=== PATIENT | male | born 1955 | race Caucasian/White ===

== ENCOUNTER 2018-03-01 06:27 | Inpatient (IN) | payer BC, OTHER ==
[~2018-03-01] VITALS: Ht 175.3 cm; Wt 74.6 kg
[~2018-03-01 06:27] MED LIST: CSPOPS OPR; DOCU1CAP60 PO; PRT40 PO; TIMO0.2528 OPL
[2018-03-01] MEDS ORDERED: FAMOTIDINE 20 MG TAB PO STA (06:39)
[2018-03-01] MEDS ORDERED: SUCRALFATE 1 GM TAB PO STA (06:39)
[2018-03-01] MEDS ORDERED: GI COCKTAIL PO STA (06:39)
--- NOTE | 2018-03-01 06:40 | EMERGENCY ROOM VISIT NOTE ---
History Report prepared by Clarissa: Fred West Under the Supervision of: Dr. Geovanni Cheatham M.D. First contact with patient: 06:33 Chief Complaint: ABDOMINAL PAIN Stated Complaint: SEVERE STOMACH PAIN,VOMITING History of Present Illness The patient is a 62 year old male who presents to the Emergency Room with complaints of worsening abdominal pain that began "a couple of nights ago." The patient states that the pain was initially intermittent "spasms" but worsened acutely last night. The patient also notes that he did vomit last night. He is having some reflux. The patient notes that he has a history of diverticulitis, but this does not feel similar. He denies any unusual urinary symptoms. Source of History: patient Onset: "a couple of nights ago." Position: abdomen Quality: other ("spasms") Timing: worsening Associated Symptoms: + vomiting Review of Systems See HPI for pertinent positives & negatives. A total of 10 systems reviewed and were otherwise negative. Past Medical & Surgical Medical Problems: (1) Anemia (2) Diab Jennifer Wo Compl, Type Ii Or Unspec Type, Not Uncntrld (3) Hypertension Nos (4) Inguinal hernia (5) Kidney disease Surgical Problems: (1) S/P correction of deviated nasal septum Family History FH: cancer Hypertension Kidney disease or stones Social History Smoking Status: Never Smoker Alcohol Use: occasionally Marital Status: Housing Status: lives with significant other Occupation Status: retired Current/Historical Medications Scheduled Dorzolamide Hcl-Timolol Maleat (Cosopt Oph), 1 DROP OPR DAILY Timolol Hemihydrate 0.25% Oph (Betimol 0.25% Oph), 1 DROP OPL DAILY Allergies Coded Allergies: No Known Allergies (Verified , 03/01/18) Physical Exam Vital Signs Date Time Temp Pulse Resp B/P (MAP) Pulse Ox O2 Delivery O2 Flow Rate FiO2 03/01/18 10:55 70 03/01/18 10:19 72 16 129/83 99 Room Air 03/01/18 09:32 64 20 121/78 96 03/01/18 08:30 76 12 138/87 98 Room Air 03/01/18 08:00 81 21 126/84 94 Room Air 03/01/18 07:30 72 20 129/86 98 Room Air 03/01/18 07:20 74 12 135/88 95 Room Air 03/01/18 07:00 72 20 132/94 95 Room Air 03/01/18 06:55 92 03/01/18 06:50 Room Air 03/01/18 06:50 82 16 144/94 97 Room Air 03/01/18 06:29 36.8 115 16 136/97 97 Room Air Physical Exam GENERAL: Awake, alert, well-appearing, in no acute distress HENT: Normocephalic, atraumatic. Oropharynx unremarkable. EYES: Normal conjunctiva. Sclera non-icteric. NECK: Supple. No nuchal rigidity. FROM. No JVD. RESPIRATORY: Clear to auscultation. CARDIAC: Regular rate, normal rhythm. Extremities warm and well perfused. Pulses equal. ABDOMEN: Soft, non-distended. Mild tenderness to the epigastric area. No rebound or guarding. No masses. RECTAL: Deferred. MUSCULOSKELETAL: Chest examination reveals no tenderness. The back is symmetrical on inspection without obvious abnormality. There is no CVA tenderness to palpation. No joint edema. LOWER EXTREMITIES: Calves are equal size bilaterally and non-tender. No edema. No discoloration. NEURO: Normal sensorium. No sensory or motor deficits noted. SKIN: No rash or jaundice noted. Medical Decision & Procedures ER Provider Diagnostic Interpretation: Radiology results as stated below per my review and radiologist interpretation: ABD/PELVIS IV AND ORAL CONT CLINICAL HISTORY: 62 years-old Male presenting with Pt c/o epigastric pain, severe stomach pain, vomiting. TECHNIQUE: Multidetector CT of the abdomen and pelvis was performed after the administration of oral and intravenous contrast. IV contrast: 116 mL of Optiray 320. A dose lowering technique was used consistent with the principles of ALARA (as low as reasonably achievable). COMPARISON: 06/28/2015. CT DOSE (mGy.cm): The estimated cumulative dose is 343.78 mGy.cm. FINDINGS: Craniologist topogram: Unremarkable. Lung bases: Minimal basilar opacities, likely atelectasis. Normal heart size. Coronary artery calcification. No pericardial or pleural effusion. Liver: Normal morphology. No liver lesion. Patent hepatic vasculature. Biliary: No intrahepatic or extrahepatic biliary ductal dilatation. Normal gallbladder. Pancreas: Normal. Spleen: Normal. Adrenal glands: Normal. Kidneys and ureters: Multiple bilateral nonobstructing renal calculi measuring up to 3 mm on the right and 2 mm on the left. There is also a focal area of hypoperfusion along the lateral aspect of the interpolar region of the right kidney (series 3 image 160). There is overlying cortical enhancement. No hydronephrosis. No significant urothelial thickening. No perinephric or periureteral fat stranding. Bladder: Circumferential bladder wall thickening. Pelvic organs: Prostate enlargement likely secondary to benign prostatic hyperplasia. Bowel: Severely distended small bowel measuring over 5 cm in the right mid abdomen. Small bowel tapers gradually to a less distended caliber up stream. There is a focal transition point in the left hemipelvis (series 3 image 334), where dilated small bowel upstream contains feces and abruptly diminishes in caliber. The downstream portion demonstrates pathologic small bowel wall thickening (series 3 image 340). The distal ileum is decompressed. The appendix is normal. Diverticulosis of the sigmoid colon suggested. No colonic wall thickening. Peritoneal cavity: Small amount of free fluid in the pelvis with trace fluid in the leaves of the mesentery. No pneumatosis or free intraperitoneal gas. Lymph nodes: No enlarged lymph nodes in the abdomen or pelvis. Vasculature: Aorta and IVC patent and normal in caliber. Abdominal wall: Normal. Musculoskeletal: Erosive endplate changes noted at L1, L2-3, and L4-5. IMPRESSION: 1. Findings consistent with high-grade small bowel obstruction with a focal transition point in the left hemipelvis. Feces noted in the immediate upstream dilated small bowel. Small bowel is dilated over 5 cm in the right abdomen. Immediately downstream to the transition point is a segment of small bowel with pathologic circumferential wall thickening. This could be due to fibrostenotic small bowel stricture, focal small bowel ischemia change, enteritis, or post radiation change. 2. Bilateral nonobstructing nephrolithiasis. 3. Focal abnormal right renal parenchymal enhancement. Findings are not consistent with infarct. This may suggest focal pyelonephritis/lobar nephronia. Correlate with urinalysis. 4. Erosive endplate changes in the lumbar spine most likely degenerative in etiology. The report will be called/faxed according to standard departmental protocol. Electronically signed by: Javier Nagy M.D. 03/01/2018 9:57 AM Dictated Date/Time: 03/01/2018 9:46 AM CHEST ONE VIEW PORTABLE CLINICAL HISTORY: Atypical chest pain COMPARISON STUDY: 01/18/2015 FINDINGS: The cardiac and mediastinal contours are normal. There is no evidence of focal pulmonary consolidation. There is no evidence of failure. No pleural effusions are visualized.[ IMPRESSION: No active disease in the chest. Electronically signed by: Shen Haddad M.D. 03/01/2018 6:52 AM Dictated Date/Time: 03/01/2018 6:52 AM Laboratory Results 03/01/18 06:44 Red Blood Count 5.72, Mean Corpuscular Volume 94.2, Mean Corpuscular Hemoglobin 33.0, Mean Corpuscular Hemoglobin Concent 35.1, Mean Platelet Volume 10.7, Neutrophils (%) (Auto) 73.9, Lymphocytes (%) (Auto) 15.2, Monocytes (%) (Auto) 9.8, Eosinophils (%) (Auto) 0.6, Basophils (%) (Auto) 0.2, Neutrophils # (Auto) 8.00, Lymphocytes # (Auto) 1.65, Monocytes # (Auto) 1.06, Eosinophils # (Auto) 0.06, Basophils # (Auto) 0.02 03/01/18 06:44 Test 03/01/18 06:44 03/01/18 09:02 White Blood Count 10.82 K/uL (4.8-10.8) Red Blood Count 5.72 M/uL (4.7-6.1) Hemoglobin 18.9 g/dL (14.0-18.0) Hematocrit 53.9 % (42-52) Mean Corpuscular Volume 94.2 fL (80-100) Mean Corpuscular Hemoglobin 33.0 pg (25-34) Mean Corpuscular Hemoglobin Concent 35.1 g/dl (32-36) Platelet Count 217 K/uL (130-400) Mean Platelet Volume 10.7 fL (7.4-10.4) Neutrophils (%) (Auto) 73.9 % Lymphocytes (%) (Auto) 15.2 % Monocytes (%) (Auto) 9.8 % Eosinophils (%) (Auto) 0.6 % Basophils (%) (Auto) 0.2 % Neutrophils # (Auto) 8.00 K/uL (1.4-6.5) Lymphocytes # (Auto) 1.65 K/uL (1.2-3.4) Monocytes # (Auto) 1.06 K/uL (0.11-0.59) Eosinophils # (Auto) 0.06 K/uL (0-0.5) Basophils # (Auto) 0.02 K/uL (0-0.2) RDW Standard Deviation 46.6 fL (36.4-46.3) RDW Coefficient of Variation 13.6 % (11.5-14.5) Immature Granulocyte % (Auto) 0.3 % Immature Granulocyte # (Auto) 0.03 K/uL (0.00-0.02) Anion Gap 10.0 mmol/L (3-11) Est Creatinine Clear Calc Drug Dose 67.3 ml/min Estimated GFR () 80.9 Estimated GFR (Non- 69.8 BUN/Creatinine Ratio 12.3 (10-20) Calcium Level 9.6 mg/dl (8.5-10.1) Total Bilirubin 1.5 mg/dl (0.2-1) Direct Bilirubin 0.4 mg/dl (0-0.2) Aspartate Amino Transf (AST/SGOT) 24 U/L (15-37) Alanine Aminotransferase (ALT/SGPT) 29 U/L (12-78) Alkaline Phosphatase 98 U/L (45-117) Total Creatine Kinase 97 U/L (39-308) Creatine Kinase MB 2.4 ng/ml (0.5-3.6) Creatine Kinase MB Ratio 2.5 (0-3.0) Troponin I < 0.015 ng/ml (0-0.045) Total Protein 8.5 gm/dl (6.4-8.2) Albumin 4.5 gm/dl (3.4-5.0) Lipase 99 U/L (73-393) Urine Color DK YELLOW Urine Appearance CLEAR (CLEAR) Urine pH 5.0 (4.5-7.5) Urine Specific [place] 1.027 (1.000-1.030) Urine Protein TRACE (NEG) Urine Glucose (UA) NEG (NEG) Urine Ketones 1+ (NEG) Urine Occult Blood NEG (NEG) Urine Nitrite NEG (NEG) Urine Bilirubin NEG (NEG) Urine Urobilinogen NEG (NEG) Urine Leukocyte Esterase NEG (NEG) Urine WBC (Auto) 0 /hpf (0-5) Urine RBC (Auto) 0-4 /hpf (0-4) Urine Hyaline Casts (Auto) 1-5 /lpf (0-5) Urine Epithelial Cells (Auto) 0-5 /lpf (0-5) Urine Bacteria (Auto) NEG (NEG) Labs reviewed by ED physician. Medications Administered Medications (Trade) Dose Ordered Sig/Andressa Route Start Time Stop Time Status Last Admin Dose Admin Famotidine (Pepcid Tab) 20 mg NOW STAT PO 03/01/18 06:39 03/01/18 06:42 DC 03/01/18 06:52 20 MG Sucralfate (Carafate Tab) 1 gm NOW STAT PO 03/01/18 06:39 03/01/18 06:42 DC 03/01/18 06:52 1 GM Al Hydroxide/Mg Hydroxide (Maalox Susp) 30 ml STK-MED ONCE .ROUTE 03/01/18 06:43 03/01/18 06:44 DC 03/01/18 06:52 30 ML Lidocaine HCl (Viscous Lidocaine 2% Soln) 20 ml STK-MED ONCE .ROUTE 03/01/18 06:43 03/01/18 06:44 DC 03/01/18 06:52 20 ML Sodium Chloride 1,000 ml @ 999 mls/hr Q1H1M STAT IV 03/01/18 07:00 03/01/18 08:00 DC 03/01/18 07:00 999 MLS/HR Ondansetron HCl (Zofran Inj) 4 mg NOW STAT IV 03/01/18 07:00 03/01/18 07:02 DC 03/01/18 07:16 4 MG Sodium Chloride 1,000 ml @ 150 mls/hr Q6H40M IV 03/01/18 10:56 03/31/18 10:55 03/01/18 12:20 150 MLS/HR ECG Per My Interpretation Indication: abdominal pain Rate (beats per minute): 80 Rhythm: normal sinus Findings: no acute ischemic change, no ectopy, other (No LEWIS/STD) ED Course 0634: Past medical records reviewed. The patient was evaluated in room B3B. A complete history and physical examination was performed. 0070: I checked on the patient at this time. 1014: I discussed the case with Felice Cormier - General Surgery. He will evaluate for further symptoms. He will admit the patient. Medical Decision Prior records/ancillary studies reviewed. Triage Nursing notes reviewed. Differential diagnosis: Etiologies such as appendicitis, diverticulitis, PUD, biliary pathology, UTI, pancreatitis, obstruction, mesenteric ischemia, aortic pathology, infections, inflammatory bowel disease, renal colic, as well as others were entertained. This is a 62-year-old male who presents with vomiting that has been ongoing since last evening. Along with abdominal pain. Patient is refusing anything here for the pain. He was given Pepcid and Carafate along with a GI cocktail. Patient was sent for CAT scan of the abdomen with contrast. This was concerning for a high-grade bowel obstruction. For this reason I did discuss the case with the surgeon electronic funds transfer coordinator who agreed to see the patient. An NG tube was inserted with improvement in the patient's pain. Patient and are in agreement with the treatment plan. Medication Reconcilliation Current Medication List: was personally reviewed by me Blood Pressure Screening Patient's blood pressure: Normal blood pressure Consults Time Called: 1010 Consulting Physician: Felice Lofton [facility] [place] Returned Call: 1014 I discussed the case with Felice Cormier [facility] [place]. He will evaluate for further symptoms. He will admit the patient Impression Primary Impression: Abdominal pain Additional Impression: Small bowel obstruction Critical Care I have personally spent greater than 30 minutes of critical care time in the direct management of this patient. This includes bedside care, interpretation of diagnostic studies, and testing, discussion with consultants, patient, and family members, and other required patient management activities. This 30 minutes is in excess of all separately billable procedures. Scribe Attestation The scribe's documentation has been prepared under my direction and personally reviewed by me in its entirety. I confirm that the note above accurately reflects all work, treatment, procedures, and medical decision making performed by me. Departure Information Dispostion Being Evaluated By Surgeon Adán Warner M.D. (PCP) Patient Instructions My [facility] Problem Qualifiers Primary Impression: Abdominal pain Abdominal location: unspecified location Qualified Codes: R10.9 - Unspecified abdominal pain
[2018-03-01] MEDS ORDERED: LIDOCAINE HCL 2% VISC SOLN 20 ML UDC ONE (06:43)
[2018-03-01] MEDS ORDERED: ALUMINUM/MAGNESIUM SUSP 30 ML UDC ONE (06:43)
--- NOTE | 2018-03-01 06:54 | DIAGNOSTIC IMAGING REPORT ---
CHEST ONE VIEW PORTABLE CLINICAL HISTORY: Atypical chest pain COMPARISON STUDY: 01/18/2015 FINDINGS: The cardiac and mediastinal contours are normal. There is no evidence of focal pulmonary consolidation. There is no evidence of failure. No pleural effusions are visualized.[ IMPRESSION: No active disease in the chest. Electronically signed by: Shen Haddad M.D. 03/01/2018 6:52 AM Dictated Date/Time: 03/01/2018 6:52 AM
[2018-03-01 06:57] LABS: BASO % 0.2 %; BASO ABS # 0.02 K/uL (0-0.2); EOS % 0.6 %; EOS ABS # 0.06 K/uL (0-0.5); HEMATOCRIT 53.9 % (42-52); HEMOGLOBIN 18.9 g/dL (14.0-18.0); IG# 0.03 K/uL (0.00-0.02); LYMPH % 15.2 %; LYMPH ABS # 1.65 K/uL (1.2-3.4); MEAN CELL VOLUME 94.2 fL (80-100); MEAN CORPUSCULAR HGB CONC 35.1 g/dl (32-36); MEAN PLATELET VOLUME 10.7 fL (7.4-10.4); MONO % 9.8 %; MONO ABS # 1.06 K/uL (0.11-0.59); NEUT % 73.9 %; PLATELET COUNT 217 K/uL (130-400); RED CELL DISTRIBUTION WIDTH CV 13.6 % (11.5-14.5); RED CELL DISTRIBUTION WIDTH SD 46.6 fL (36.4-46.3); WHITE BLOOD COUNT 10.82 K/uL (4.8-10.8)
[2018-03-01] MEDS ORDERED: OPTIRAY 320 IV PRN (07:00)
[2018-03-01] MEDS ORDERED: SODIUM CHLORIDE 0.9% 1000ML 1,000 ML IV STA (07:00)
[2018-03-01] MEDS ORDERED: ONDANSETRON INJ 2 MG/ML 2 ML VIAL IV STA (07:00)
[2018-03-01 07:20] LABS: ALBUMIN 4.5 gm/dl (3.4-5.0); ALKALINE PHOSPHATASE 98 U/L (45-117); ALT/SGPT 29 U/L (12-78); AST/SGOT 24 U/L (15-37); BLOOD UREA NITROGEN 14 mg/dl (7-18); CALCIUM 9.6 mg/dl (8.5-10.1); CARBON DIOXIDE 27 mmol/L (21-32); CKMB 2.4 ng/ml (0.5-3.6); CREATININE 1.11 mg/dl (0.60-1.40); GLUCOSE 113 mg/dl (70-99); LIPASE 99 U/L (73-393); POTASSIUM 4.3 mmol/L (3.5-5.1); SODIUM 137 mmol/L (136-145); TOTAL PROTEIN 8.5 gm/dl (6.4-8.2)
[2018-03-01] MEDS ORDERED: TIMO1SOL6 OPL (08:29)
[2018-03-01] MEDS ORDERED: DORZ1SOL6 OPR (08:29)
--- NOTE | 2018-03-01 09:59 | DIAGNOSTIC IMAGING REPORT ---
ABD/PELVIS IV AND ORAL CONT CLINICAL HISTORY: 62 years-old Male presenting with Pt c/o epigastric pain, severe stomach pain, vomiting. TECHNIQUE: Multidetector CT of the abdomen and pelvis was performed after the administration of oral and intravenous contrast. IV contrast: 116 mL of Optiray 320. A dose lowering technique was used consistent with the principles of ALARA (as low as reasonably achievable). COMPARISON: 06/28/2015. CT DOSE (mGy.cm): The estimated cumulative dose is 343.78 mGy.cm. FINDINGS: Research Study Assistant topogram: Unremarkable. Lung bases: Minimal basilar opacities, likely atelectasis. Normal heart size. Coronary artery calcification. No pericardial or pleural effusion. Liver: Normal morphology. No liver lesion. Patent hepatic vasculature. Biliary: No intrahepatic or extrahepatic biliary ductal dilatation. Normal gallbladder. Pancreas: Normal. Spleen: Normal. Adrenal glands: Normal. Kidneys and ureters: Multiple bilateral nonobstructing renal calculi measuring up to 3 mm on the right and 2 mm on the left. There is also a focal area of hypoperfusion along the lateral aspect of the interpolar region of the right kidney (series 3 image 160). There is overlying cortical enhancement. No hydronephrosis. No significant urothelial thickening. No perinephric or periureteral fat stranding. Bladder: Circumferential bladder wall thickening. Pelvic organs: Prostate enlargement likely secondary to benign prostatic hyperplasia. Bowel: Severely distended small bowel measuring over 5 cm in the right mid abdomen. Small bowel tapers gradually to a less distended caliber up stream. There is a focal transition point in the left hemipelvis (series 3 image 334), where dilated small bowel upstream contains feces and abruptly diminishes in caliber. The downstream portion demonstrates pathologic small bowel wall thickening (series 3 image 340). The distal ileum is decompressed. The appendix is normal. Diverticulosis of the sigmoid colon suggested. No colonic wall thickening. Peritoneal cavity: Small amount of free fluid in the pelvis with trace fluid in the leaves of the mesentery. No pneumatosis or free intraperitoneal gas. Lymph nodes: No enlarged lymph nodes in the abdomen or pelvis. Vasculature: Aorta and IVC patent and normal in caliber. Abdominal wall: Normal. Musculoskeletal: Erosive endplate changes noted at L1, L2-3, and L4-5. IMPRESSION: 1. Findings consistent with high-grade small bowel obstruction with a focal transition point in the left hemipelvis. Feces noted in the immediate upstream dilated small bowel. Small bowel is dilated over 5 cm in the right abdomen. Immediately downstream to the transition point is a segment of small bowel with pathologic circumferential wall thickening. This could be due to fibrostenotic small bowel stricture, focal small bowel ischemia change, enteritis, or post radiation change. 2. Bilateral nonobstructing nephrolithiasis. 3. Focal abnormal right renal parenchymal enhancement. Findings are not consistent with infarct. This may suggest focal pyelonephritis/lobar nephronia. Correlate with urinalysis. 4. Erosive endplate changes in the lumbar spine most likely degenerative in etiology. The report will be called/faxed according to standard departmental protocol. Electronically signed by: Javier Nagy M.D. 03/01/2018 9:57 AM Dictated Date/Time: 03/01/2018 9:46 AM
[2018-03-01] MEDS ORDERED: SODIUM CHLORIDE 0.9% 1000ML 1,000 ML IV SCH (10:56)
--- NOTE | 2018-03-01 10:56 | History and Physical ---
History & Physical Date & Time of Service: Mar 01, 2018 at 10:41 Chief Complaint: Severe Stomach Pain,Vomiting Primary Care Physician: Adán Freedman M.D. History of Present Illness 62 y/o male with abdominal pain, bloating for past two days and last night began vomiting. Has had less severe symptoms at home if he has high fiber intake but usually resolves in a few hours or a day. This has been going on for past 10 years or so. Has had a few episodes of diverticulitis but never admitted. Had a GI bleed in 2013 presumed to be diverticular on discharge and had outpatient capsule endoscopy that wasn't complete. Just prior to this episode he was eating "a lot" of nuts and coleslaw. BM morning and is passing scant flatus. History of HTN but not medicated and blood sugars were elevated in 100's at one time but he has never been treated for diabetes as listed in his problem list. Past Medical/Surgical History Medical Problems: (1) Anemia (2) Diab Jennifer Wo Compl, Type Ii Or Unspec Type, Not Uncntrld (3) Hypertension Nos (4) Kidney disease Surgical Problems: (1) S/P correction of deviated nasal septum (2) Inguinal hernia Family History FH: cancer Hypertension Kidney disease or stones Social History Smoking Status: Never Smoker Marital Status: Occupational Status: retired Immunizations History of Influenza Vaccine: Yes History of Tetanus Vaccine?: Yes History of Pneumococcal: No History of Hepatitis B Vaccine: No Multi-Drug Resistant Organisms History of MDRO: No Allergies Coded Allergies: No Known Allergies (Verified , 03/01/18) Home Medications Scheduled Dorzolamide Hcl-Timolol Maleat (Cosopt Oph), 1 DROP OPR DAILY Timolol Hemihydrate 0.25% Oph (Betimol 0.25% Oph), 1 DROP OPL DAILY Review of Systems Constitutional: No fever, No chills Cardiovascular: No chest pain, No edema Abdomen: + nausea, + vomiting, + GI bleeding, No diarrhea Physical Exam Vital Signs Date Time Temp Pulse Resp B/P (MAP) Pulse Ox O2 Delivery O2 Flow Rate FiO2 03/01/18 10:19 72 16 129/83 99 Room Air 03/01/18 09:32 64 20 121/78 96 03/01/18 08:30 76 12 138/87 98 Room Air 03/01/18 08:00 81 21 126/84 94 Room Air 03/01/18 07:30 72 20 129/86 98 Room Air 03/01/18 07:20 74 12 135/88 95 Room Air 03/01/18 07:00 72 20 132/94 95 Room Air 03/01/18 06:55 92 03/01/18 06:50 Room Air 03/01/18 06:50 82 16 144/94 97 Room Air 03/01/18 06:29 36.8 115 16 136/97 97 Room Air General Appearance: WD/WN, no apparent distress ENT: normal ENT inspection Respiratory/Chest: lungs clear, normal breath sounds Cardiovascular: regular rate, rhythm, no edema, no murmur Abdomen/GI: + tenderness (minimal), + distended Neurologic/Psych: alert, oriented x 3 Skin: normal color, warm/dry Diagnostics Laboratory Results Results Past 24 Hours Test 03/01/18 06:44 03/01/18 09:02 Range/Units White Blood Count 10.82 4.8-10.8 K/uL Red Blood Count 5.72 4.7-6.1 M/uL Hemoglobin 18.9 14.0-18.0 g/dL Hematocrit 53.9 42-52 % Mean Corpuscular Volume 94.2 80-100 fL Mean Corpuscular Hemoglobin 33.0 25-34 pg Mean Corpuscular Hemoglobin Concent 35.1 32-36 g/dl Platelet Count 217 130-400 K/uL Mean Platelet Volume 10.7 7.4-10.4 fL Neutrophils (%) (Auto) 73.9 % Lymphocytes (%) (Auto) 15.2 % Monocytes (%) (Auto) 9.8 % Eosinophils (%) (Auto) 0.6 % Basophils (%) (Auto) 0.2 % Neutrophils # (Auto) 8.00 1.4-6.5 K/uL Lymphocytes # (Auto) 1.65 1.2-3.4 K/uL Monocytes # (Auto) 1.06 0.11-0.59 K/uL Eosinophils # (Auto) 0.06 0-0.5 K/uL Basophils # (Auto) 0.02 0-0.2 K/uL RDW Standard Deviation 46.6 36.4-46.3 fL RDW Coefficient of Variation 13.6 11.5-14.5 % Immature Granulocyte % (Auto) 0.3 % Immature Granulocyte # (Auto) 0.03 0.00-0.02 K/uL Sodium Level 137 136-145 mmol/L Potassium Level 4.3 3.5-5.1 mmol/L Chloride Level 101 98-107 mmol/L Carbon Dioxide Level 27 21-32 mmol/L Anion Gap 10.0 3-11 mmol/L Blood Urea Nitrogen 14 7-18 mg/dl Creatinine 1.11 0.60-1.40 mg/dl Est Creatinine Clear Calc Drug Dose 67.3 ml/min Estimated GFR () 80.9 Estimated GFR (Non- 69.8 BUN/Creatinine Ratio 12.3 10-20 Random Glucose 113 70-99 mg/dl Calcium Level 9.6 8.5-10.1 mg/dl Total Bilirubin 1.5 0.2-1 mg/dl Direct Bilirubin 0.4 0-0.2 mg/dl Aspartate Amino Transf (AST/SGOT) 24 15-37 U/L Alanine Aminotransferase (ALT/SGPT) 29 12-78 U/L Alkaline Phosphatase 98 45-117 U/L Total Creatine Kinase 97 39-308 U/L Creatine Kinase MB 2.4 0.5-3.6 ng/ml Creatine Kinase MB Ratio 2.5 0-3.0 Troponin I < 0.015 0-0.045 ng/ml Total Protein 8.5 6.4-8.2 gm/dl Albumin 4.5 3.4-5.0 gm/dl Lipase 99 73-393 U/L Urine Color DK YELLOW Urine Appearance CLEAR CLEAR Urine pH 5.0 4.5-7.5 Urine Specific [place] 1.027 1.000-1.030 Urine Protein TRACE NEG Urine Glucose (UA) NEG NEG Urine Ketones 1+ NEG Urine Occult Blood NEG NEG Urine Nitrite NEG NEG Urine Bilirubin NEG NEG Urine Urobilinogen NEG NEG Urine Leukocyte Esterase NEG NEG Urine WBC (Auto) 0 0-5 /hpf Urine RBC (Auto) 0-4 0-4 /hpf Urine Hyaline Casts (Auto) 1-5 0-5 /lpf Urine Epithelial Cells (Auto) 0-5 0-5 /lpf Urine Bacteria (Auto) NEG NEG Diagnostic Radiology ABD/PELVIS IV AND ORAL CONT CLINICAL HISTORY: 62 years-old Male presenting with Pt c/o epigastric pain, severe stomach pain, vomiting. TECHNIQUE: Multidetector CT of the abdomen and pelvis was performed after the administration of oral and intravenous contrast. IV contrast: 116 mL of Optiray 320. A dose lowering technique was used consistent with the principles of ALARA (as low as reasonably achievable). COMPARISON: 06/28/2015. CT DOSE (mGy.cm): The estimated cumulative dose is 343.78 mGy.cm. FINDINGS: Bundle Shaker topogram: Unremarkable. Lung bases: Minimal basilar opacities, likely atelectasis. Normal heart size. Coronary artery calcification. No pericardial or pleural effusion. Liver: Normal morphology. No liver lesion. Patent hepatic vasculature. Biliary: No intrahepatic or extrahepatic biliary ductal dilatation. Normal gallbladder. Pancreas: Normal. Spleen: Normal. Adrenal glands: Normal. Kidneys and ureters: Multiple bilateral nonobstructing renal calculi measuring up to 3 mm on the right and 2 mm on the left. There is also a focal area of hypoperfusion along the lateral aspect of the interpolar region of the right kidney (series 3 image 160). There is overlying cortical enhancement. No hydronephrosis. No significant urothelial thickening. No perinephric or periureteral fat stranding. Bladder: Circumferential bladder wall thickening. Pelvic organs: Prostate enlargement likely secondary to benign prostatic hyperplasia. Bowel: Severely distended small bowel measuring over 5 cm in the right mid abdomen. Small bowel tapers gradually to a less distended caliber up stream. There is a focal transition point in the left hemipelvis (series 3 image 334), where dilated small bowel upstream contains feces and abruptly diminishes in caliber. The downstream portion demonstrates pathologic small bowel wall thickening (series 3 image 340). The distal ileum is decompressed. The appendix is normal. Diverticulosis of the sigmoid colon suggested. No colonic wall thickening. Peritoneal cavity: Small amount of free fluid in the pelvis with trace fluid in the leaves of the mesentery. No pneumatosis or free intraperitoneal gas. Lymph nodes: No enlarged lymph nodes in the abdomen or pelvis. Vasculature: Aorta and IVC patent and normal in caliber. Abdominal wall: Normal. Musculoskeletal: Erosive endplate changes noted at L1, L2-3, and L4-5. IMPRESSION: 1. Findings consistent with high-grade small bowel obstruction with a focal transition point in the left hemipelvis. Feces noted in the immediate upstream dilated small bowel. Small bowel is dilated over 5 cm in the right abdomen. Immediately downstream to the transition point is a segment of small bowel with pathologic circumferential wall thickening. This could be due to fibrostenotic small bowel stricture, focal small bowel ischemia change, enteritis, or post radiation change. 2. Bilateral nonobstructing nephrolithiasis. 3. Focal abnormal right renal parenchymal enhancement. Findings are not consistent with infarct. This may suggest focal pyelonephritis/lobar nephronia. Correlate with urinalysis. 4. Erosive endplate changes in the lumbar spine most likely degenerative in etiology. The report will be called/faxed according to standard departmental protocol. Electronically signed by: Javier Nayg M.D. 03/01/2018 9:57 AM Dictated Date/Time: 03/01/2018 9:46 AM Impression Assessment and Plan Small bowel obstruction Has had low grade obstructive symptoms for some time. Transition point on CT , may be adhesion related to previous diverticulitis. Vitals are stable, will treat conservatively for now. NG was ordered but not yet placed. Will ask medicine to follow along. Consider exploration if not improving in a day or two. 03/01/18- pt evaluated in ER- adm with sbo- minimal to no pain now, wbc normal. Do not see mass on CT- likely adhesions- will cont npo, NG decompression- if no progress or pain recurs will proceed to OR.
[2018-03-01] MEDS ORDERED: ONDANSETRON INJ 2 MG/ML 2 ML VIAL IV PRN (11:00)
[2018-03-01] MEDS ORDERED: MoRPHine SULFATE 4 MG/ML 1 ML CARP\\VIAL IV PRN (11:00)
[2018-03-01] MEDS ORDERED: MoRPHine SULFATE 2 MG/ML CARP IV PRN (11:00)
[2018-03-01 11:30] VITALS: O2SAT 99; Ht 175.3 cm; Wt 74.6 kg
--- NOTE | 2018-03-01 12:22 | Medical Consult ---
Consultation Date of Consultation: Mar 01, 2018. Attending Physician: Reason for Consultation: Medical Management History of Present Illness 62 y/o M who was admitted on 03/[address] Smith for high grade SBO. Pt has no prior hx of SBO. Pt denies fever, SOB, chest pain, c/d, LE swelling. He does feel improved overall s/p NGT placement. Some occasional abd spasms now, but pain is much improved. Still bloated, but better. No further nausea. Past Medical/Surgical History PreDM hx--slightly elevated BS around 100 but controlled with diet and no hx of meds HTN--hx of medication use, but controlled off of meds at this time Hx of GIB on aspirin 81mg, since d/c'd and no hx of NC, CVA Family History Family history was reviewed; no changes noted. No NC, CVA Social History Smoking Status: Never Smoker Alcohol Use: 1 beer weekly Drug Use: none Marital Status: Housing Status: lives with significant other Occupation Status: retired Allergies Coded Allergies: No Known Allergies (Verified , 03/01/18) Current Inpatient Medications Current Inpatient Medications Medications (Trade) Dose Ordered Sig/Andressa Route Start Time Stop Time Status Last Admin Dose Admin Ioversol (Optiray 320) 100 ml UD PRN IV 03/01/18 07:00 03/05/18 06:59 Sodium Chloride 1,000 ml @ 150 mls/hr Q6H40M IV 03/01/18 10:56 03/31/18 10:55 UNV Ondansetron HCl (Zofran Inj) 4 mg Q4H PRN IV 03/01/18 11:00 03/31/18 10:59 UNV Morphine Sulfate (MoRPHine SULFATE INJ) 2 mg Q1H PRN IV 03/01/18 11:00 03/15/18 10:59 UNV Morphine Sulfate (MoRPHine SULFATE INJ) 4 mg Q1H PRN IV 03/01/18 11:00 03/15/18 10:59 UNV Dorzolamide/ Timolol (Cosopt Op Soln) 1 drops DAILY OPR 03/02/18 09:00 04/01/18 08:59 UNV Non-Formulary Medication (Timolol Hemihydrate 0.25% Oph (Betimol 0.25% Oph)) 1 drop DAILY OPL 8/22/18 09:00 04/01/18 08:59 UNV Review of Systems Pertinent positives and negatives reviewed in HPI--all others negative Physical Exam Date Time Temp Pulse Resp B/P (MAP) Pulse Ox O2 Delivery O2 Flow Rate FiO2 03/01/18 11:30 99 Room Air 03/01/18 11:30 67 20 134/95 94 Room Air 03/01/18 10:55 70 03/01/18 10:19 72 16 129/83 99 Room Air 03/01/18 09:32 64 20 121/78 96 03/01/18 08:30 76 12 138/87 98 Room Air 03/01/18 08:00 81 21 126/84 94 Room Air 03/01/18 07:30 72 20 129/86 98 Room Air 03/01/18 07:20 74 12 135/88 95 Room Air 03/01/18 07:00 72 20 132/94 95 Room Air 03/01/18 06:55 92 03/01/18 06:50 Room Air 03/01/18 06:50 82 16 144/94 97 Room Air 03/01/18 06:29 36.8 115 16 136/97 97 Room Air General Appearance: WD/WN, no apparent distress Head: normocephalic, atraumatic Eyes: normal inspection, sclerae normal Respiratory/Chest: normal breath sounds, no respiratory distress Cardiovascular: regular rate, rhythm, no edema Abdomen/GI: soft, + tenderness, + distended Extremities/Musculoskelatal: no calf tenderness, no pedal edema Neurologic/Psych: alert, normal mood/affect, oriented x 3 Skin: normal color, warm/dry Laboratory Results Last 24 Hours Test 03/01/18 06:44 03/01/18 09:02 White Blood Count 10.82 K/uL Red Blood Count 5.72 M/uL Hemoglobin 18.9 g/dL Hematocrit 53.9 % Mean Corpuscular Volume 94.2 fL Mean Corpuscular Hemoglobin 33.0 pg Mean Corpuscular Hemoglobin Concent 35.1 g/dl Platelet Count 217 K/uL Mean Platelet Volume 10.7 fL Neutrophils (%) (Auto) 73.9 % Lymphocytes (%) (Auto) 15.2 % Monocytes (%) (Auto) 9.8 % Eosinophils (%) (Auto) 0.6 % Basophils (%) (Auto) 0.2 % Neutrophils # (Auto) 8.00 K/uL Lymphocytes # (Auto) 1.65 K/uL Monocytes # (Auto) 1.06 K/uL Eosinophils # (Auto) 0.06 K/uL Basophils # (Auto) 0.02 K/uL RDW Standard Deviation 46.6 fL RDW Coefficient of Variation 13.6 % Immature Granulocyte % (Auto) 0.3 % Immature Granulocyte # (Auto) 0.03 K/uL Sodium Level 137 mmol/L Potassium Level 4.3 mmol/L Chloride Level 101 mmol/L Carbon Dioxide Level 27 mmol/L Anion Gap 10.0 mmol/L Blood Urea Nitrogen 14 mg/dl Creatinine 1.11 mg/dl Est Creatinine Clear Calc Drug Dose 67.3 ml/min Estimated GFR () 80.9 Estimated GFR (Non- 69.8 BUN/Creatinine Ratio 12.3 Random Glucose 113 mg/dl Calcium Level 9.6 mg/dl Total Bilirubin 1.5 mg/dl Direct Bilirubin 0.4 mg/dl Aspartate Amino Transf (AST/SGOT) 24 U/L Alanine Aminotransferase (ALT/SGPT) 29 U/L Alkaline Phosphatase 98 U/L Total Creatine Kinase 97 U/L Creatine Kinase MB 2.4 ng/ml Creatine Kinase MB Ratio 2.5 Troponin I < 0.015 ng/ml Total Protein 8.5 gm/dl Albumin 4.5 gm/dl Lipase 99 U/L Urine Color DK YELLOW Urine Appearance CLEAR Urine pH 5.0 Urine Specific [place] 1.027 Urine Protein TRACE Urine Glucose (UA) NEG Urine Ketones 1+ Urine Occult Blood NEG Urine Nitrite NEG Urine Bilirubin NEG Urine Urobilinogen NEG Urine Leukocyte Esterase NEG Urine WBC (Auto) 0 /hpf Urine RBC (Auto) 0-4 /hpf Urine Hyaline Casts (Auto) 1-5 /lpf Urine Epithelial Cells (Auto) 0-5 /lpf Urine Bacteria (Auto) NEG Assessment & Plan 62 y/o M who was admitted on 03/[address] Smith for high grade SBO. SBO: Noted on CTAP planning for conservative management for now DVT proph and diet as per gen surg Hb on admission 18.9 HTN: stable Hx of medication use but no longer on medication and no issues DM: hx of pre-DM that has resolved with diet control Hx of GIB with aspirin 81mg for prevention, no hx of NC, CVA
[2018-03-01 12:33] VITALS: BP 135/86; PULSE 64; TEMP 36.8; O2SAT 96
[2018-03-01] MEDS: NSS + 20MEQ KCL 1000ML 1,000 ML IV SCH ×2 (14:08→21:13)
[2018-03-01 15:12] VITALS: BP 146/85; PULSE 70; TEMP 37.1; O2SAT 97
[2018-03-01] MEDS ORDERED: NURSING DECISION MEDICATION ORDER SCH (15:15)
[2018-03-01 15:30] VITALS: O2SAT 96
[2018-03-01] MEDS: ACETAMINOPHEN IV 100 ML IV PRN (19:11)
[2018-03-01 23:33] VITALS: BP 131/82; PULSE 71; TEMP 36.7; O2SAT 95
[2018-03-02] MEDS: ACETAMINOPHEN IV 100 ML IV PRN ×2 (03:39→13:29)
[2018-03-02] MEDS: NSS + 20MEQ KCL 1000ML 1,000 ML IV SCH ×3 (05:03→20:46)
--- NOTE | 2018-03-02 06:11 | Surgery Progress Note ---
Surgery Progress Note Date of Service Mar 02, 2018. Subjective feels much better- much less distended had multiple loose bms, also some flatus NG- min initially, 350 cc last shift Objective Vital Signs: Date Time Temp Pulse Resp B/P (MAP) Pulse Ox O2 Delivery O2 Flow Rate FiO2 03/01/18 23:33 36.7 71 17 131/82 (98) 95 Room Air 03/01/18 23:10 Room Air 03/01/18 15:30 96 Room Air 03/01/18 15:12 37.1 70 18 146/85 (105) 97 Room Air 03/01/18 12:35 Room Air 03/01/18 12:33 36.8 64 20 135/86 (102) 96 Room Air 03/01/18 11:30 99 Room Air 03/01/18 11:30 67 20 134/95 94 Room Air 03/01/18 10:55 70 03/01/18 10:19 72 16 129/83 99 Room Air 03/01/18 09:32 64 20 121/78 96 03/01/18 08:30 76 12 138/87 98 Room Air 03/01/18 08:00 81 21 126/84 94 Room Air 03/01/18 07:30 72 20 129/86 98 Room Air 03/01/18 07:20 74 12 135/88 95 Room Air 03/01/18 07:00 72 20 132/94 95 Room Air 03/01/18 06:55 92 03/01/18 06:50 Room Air 03/01/18 06:50 82 16 144/94 97 Room Air 03/01/18 06:29 36.8 115 16 136/97 97 Room Air General Appearance: no apparent distress Respiratory/Chest: no respiratory distress Abdomen: non distended (some bowel sounds), soft Laboratory Results: Results Past 24 Hours Test 03/01/18 06:44 03/01/18 09:02 03/02/18 05:50 Range/Units White Blood Count 10.82 4.8-10.8 K/uL Red Blood Count 5.72 4.7-6.1 M/uL Hemoglobin 18.9 14.0-18.0 g/dL Hematocrit 53.9 42-52 % Mean Corpuscular Volume 94.2 80-100 fL Mean Corpuscular Hemoglobin 33.0 25-34 pg Mean Corpuscular Hemoglobin Concent 35.1 32-36 g/dl Platelet Count 217 130-400 K/uL Mean Platelet Volume 10.7 7.4-10.4 fL Neutrophils (%) (Auto) 73.9 % Lymphocytes (%) (Auto) 15.2 % Monocytes (%) (Auto) 9.8 % Eosinophils (%) (Auto) 0.6 % Basophils (%) (Auto) 0.2 % Neutrophils # (Auto) 8.00 1.4-6.5 K/uL Lymphocytes # (Auto) 1.65 1.2-3.4 K/uL Monocytes # (Auto) 1.06 0.11-0.59 K/uL Eosinophils # (Auto) 0.06 0-0.5 K/uL Basophils # (Auto) 0.02 0-0.2 K/uL RDW Standard Deviation 46.6 36.4-46.3 fL RDW Coefficient of Variation 13.6 11.5-14.5 % Immature Granulocyte % (Auto) 0.3 % Immature Granulocyte # (Auto) 0.03 0.00-0.02 K/uL Sodium Level 137 136-145 mmol/L Potassium Level 4.3 3.5-5.1 mmol/L Chloride Level 101 98-107 mmol/L Carbon Dioxide Level 27 21-32 mmol/L Anion Gap 10.0 3-11 mmol/L Blood Urea Nitrogen 14 7-18 mg/dl Creatinine 1.11 0.60-1.40 mg/dl Est Creatinine Clear Calc Drug Dose 67.3 ml/min Estimated GFR () 80.9 Estimated GFR (Non- 69.8 BUN/Creatinine Ratio 12.3 10-20 Random Glucose 113 70-99 mg/dl Calcium Level 9.6 8.5-10.1 mg/dl Total Bilirubin 1.5 0.2-1 mg/dl Direct Bilirubin 0.4 0-0.2 mg/dl Aspartate Amino Transf (AST/SGOT) 24 15-37 U/L Alanine Aminotransferase (ALT/SGPT) 29 12-78 U/L Alkaline Phosphatase 98 45-117 U/L Total Creatine Kinase 97 39-308 U/L Creatine Kinase MB 2.4 0.5-3.6 ng/ml Creatine Kinase MB Ratio 2.5 0-3.0 Troponin I < 0.015 0-0.045 ng/ml Total Protein 8.5 6.4-8.2 gm/dl Albumin 4.5 3.4-5.0 gm/dl Lipase 99 73-393 U/L Urine Color DK YELLOW Urine Appearance CLEAR CLEAR Urine pH 5.0 4.5-7.5 Urine Specific [place] 1.027 1.000-1.030 Urine Protein TRACE NEG Urine Glucose (UA) NEG NEG Urine Ketones 1+ NEG Urine Occult Blood NEG NEG Urine Nitrite NEG NEG Urine Bilirubin NEG NEG Urine Urobilinogen NEG NEG Urine Leukocyte Esterase NEG NEG Urine WBC (Auto) 0 0-5 /hpf Urine RBC (Auto) 0-4 0-4 /hpf Urine Hyaline Casts (Auto) 1-5 0-5 /lpf Urine Epithelial Cells (Auto) 0-5 0-5 /lpf Urine Bacteria (Auto) NEG NEG Assessment & Plan 03/02/18- adm with sbo- has had mult loose bms, flatus- initial CT findings impressive with dilated small bowel- has made improvement- check film this am, try NG clamping schedule. He feels relatively normal. Could have adhesion with partial obstruction and worsened by eating Lg salad with cabbage/ high fiber. addendum- film shows all contrast in colon- minimal findings of sbo- will remove NG, try ice
[2018-03-02 06:38] LABS: BASO % 0.4 %; BASO ABS # 0.03 K/uL (0-0.2); EOS % 1.7 %; EOS ABS # 0.13 K/uL (0-0.5); HEMATOCRIT 43.7 % (42-52); HEMOGLOBIN 14.7 g/dL (14.0-18.0); IG# 0.02 K/uL (0.00-0.02); LYMPH % 20.3 %; LYMPH ABS # 1.57 K/uL (1.2-3.4); MEAN CELL VOLUME 95.4 fL (80-100); MEAN CORPUSCULAR HEMOGLOBIN 32.1 pg (25-34); MEAN CORPUSCULAR HGB CONC 33.6 g/dl (32-36); MONO % 12.4 %; MONO ABS # 0.96 K/uL (0.11-0.59); NEUT % 64.9 %; NEUT ABS # 5.01 K/uL (1.4-6.5); PLATELET COUNT 178 K/uL (130-400); RED CELL DISTRIBUTION WIDTH CV 13.7 % (11.5-14.5); RED CELL DISTRIBUTION WIDTH SD 47.5 fL (36.4-46.3); WHITE BLOOD COUNT 7.72 K/uL (4.8-10.8)
[2018-03-02 07:00] LABS: CREATININE 0.85 mg/dl (0.60-1.40); PHOSPHORUS 2.1 mg/dl (2.5-4.9); POTASSIUM 4.2 mmol/L (3.5-5.1)
[2018-03-02 07:40] VITALS: BP 139/79; PULSE 71; TEMP 37; O2SAT 94
--- NOTE | 2018-03-02 07:54 | DIAGNOSTIC IMAGING REPORT ---
ABDOMEN 2 VIEWS CLINICAL HISTORY: Small bowel obstruction. COMPARISON STUDY: CT of the abdomen and pelvis March 01, 2018. FINDINGS: There is no free air. Tip of nasogastric tube projects over the gastric antrum. Oral contrast has now reached the colon. Small bowel dilatation has significantly improved. Bilateral renal calculi are noted. Gas within the rectum is noted. There is probable contrast within the bladder from previous CT. IMPRESSION: 1. Marked improvement in small bowel dilatation with passage of oral contrast into the colon. Tip of nasogastric tube within the gastric antrum. 2. No free air. 3. Bilateral nephrolithiasis. Electronically signed by: Adolfo Florence M.D. 03/02/2018 7:52 AM Dictated Date/Time: 03/02/2018 7:48 AM
[2018-03-02] MEDS ORDERED: DORZOLAMIDE/TIMOLOL 22.3/6.8MG/ML 10 ML BTL OPR SCH (09:00)
[2018-03-02] MEDS ORDERED: TIMOLOL HEMIHYDRATE OPL SCH (09:00)
[2018-03-02 09:30] VITALS: O2SAT 94
[2018-03-02 11:25] VITALS: BP 136/80; PULSE 66; TEMP 36.9; O2SAT 96
[2018-03-02] MEDS ORDERED: TMPOPS15 OPL (13:19)
--- NOTE | 2018-03-02 14:23 | Hospitalist Progress Note ---
Hospitalist Progress Note Date of Service Mar 02, 2018. (Keyla Manuel ., ROSS) Subjective Pt evaluation today including: conversation w/ patient, physical exam, chart review, lab review, review of inpatient medication list Voiding: no voiding problems Mr. Jeffers is feeling better today. NG tube is clamped and to be pulled. He is not nauseas, no belly pain. He has had some loose bowel movements. ROS Constitutional: no chills, aches, sweats or fever Respiratory: no sob,cough, sputum, or wheezing Cardiac: no chest pain, palpitations, edema, orthopnea or lightheadedness GI: no abdominal pain, nausea, vomiting, diarrhea or constipation : no dysuria or hesitancy Extremities: no joint pain or weakness Skin: no rash All other systems reviewed and negative (Keyla Manuel CRNP) Medications Medications Administered Medications (Trade) Dose Ordered Sig/Andressa Route Start Time Stop Time Status Last Admin Dose Admin Famotidine (Pepcid Tab) 20 mg NOW STAT PO 03/01/18 06:39 03/01/18 06:42 DC 03/01/18 06:52 20 MG Sucralfate (Carafate Tab) 1 gm NOW STAT PO 03/01/18 06:39 03/01/18 06:42 DC 03/01/18 06:52 1 GM Al Hydroxide/Mg Hydroxide (Maalox Susp) 30 ml STK-MED ONCE .ROUTE 03/01/18 06:43 03/01/18 06:44 DC 03/01/18 06:52 30 ML Lidocaine HCl (Viscous Lidocaine 2% Soln) 20 ml STK-MED ONCE .ROUTE 03/01/18 06:43 03/01/18 06:44 DC 03/01/18 06:52 20 ML Sodium Chloride 1,000 ml @ 999 mls/hr Q1H1M STAT IV 03/01/18 07:00 03/01/18 08:00 DC 03/01/18 07:00 999 MLS/HR Ondansetron HCl (Zofran Inj) 4 mg NOW STAT IV 03/01/18 07:00 03/01/18 07:02 DC 03/01/18 07:16 4 MG Sodium Chloride 1,000 ml @ 150 mls/hr Q6H40M IV 03/01/18 10:56 03/01/18 15:11 DC 03/01/18 12:20 150 MLS/HR Potassium Chloride/Sodium Chloride 1,000 ml @ 125 mls/hr Q8H IV 03/01/18 13:00 03/31/18 12:59 03/02/18 12:52 125 MLS/HR Acetaminophen 100 ml @ 400 mls/hr Q8H PRN IV 03/01/18 19:00 03/31/18 18:59 03/02/18 13:29 400 MLS/HR (Keyla Manuel CRNP) Objective Vital Signs Date Time Temp Pulse Resp B/P (MAP) Pulse Ox O2 Delivery O2 Flow Rate FiO2 03/02/18 11:25 36.9 66 16 136/80 (98) 96 Room Air 03/02/18 09:30 94 Room Air 03/02/18 07:40 37.0 71 14 139/79 (99) 94 Room Air 03/02/18 07:30 Room Air 03/01/18 23:33 36.7 71 17 131/82 (98) 95 Room Air 03/01/18 23:10 Room Air 03/01/18 15:30 96 Room Air 03/01/18 15:12 37.1 70 18 146/85 (105) 97 Room Air (Keyla Manuel CRNP) Physical Exam Notes: General: no distress Eyes: normal inspection, PERLL Respiratory: chest non tender, clear to auscultation, normal breath sounds, no respiratory distress, no accessory muscle use Cardiac: regular rate and rhythm, no rub or gallop, no murmur, no edema, no jvd GI/: active bowel sounds, no abd pain or tenderness, soft, non distended Extremities: normal range of motion, normal strength, non tender Neuro/Psych: alert and oriented x 3, normal mood and affect Skin: normal color, dry (Keyla Manuel CRNP) Laboratory Results Last 24 Hours Test 03/02/18 05:50 White Blood Count 7.72 K/uL Red Blood Count 4.58 M/uL Hemoglobin 14.7 g/dL Hematocrit 43.7 % Mean Corpuscular Volume 95.4 fL Mean Corpuscular Hemoglobin 32.1 pg Mean Corpuscular Hemoglobin Concent 33.6 g/dl Platelet Count 178 K/uL Mean Platelet Volume 11.0 fL Neutrophils (%) (Auto) 64.9 % Lymphocytes (%) (Auto) 20.3 % Monocytes (%) (Auto) 12.4 % Eosinophils (%) (Auto) 1.7 % Basophils (%) (Auto) 0.4 % Neutrophils # (Auto) 5.01 K/uL Lymphocytes # (Auto) 1.57 K/uL Monocytes # (Auto) 0.96 K/uL Eosinophils # (Auto) 0.13 K/uL Basophils # (Auto) 0.03 K/uL RDW Standard Deviation 47.5 fL RDW Coefficient of Variation 13.7 % Immature Granulocyte % (Auto) 0.3 % Immature Granulocyte # (Auto) 0.02 K/uL Sodium Level 142 mmol/L Potassium Level 4.2 mmol/L Chloride Level 109 mmol/L Carbon Dioxide Level 27 mmol/L Anion Gap 6.0 mmol/L Blood Urea Nitrogen 11 mg/dl Creatinine 0.85 mg/dl Est Creatinine Clear Calc Drug Dose 87.8 ml/min Estimated GFR () 106.7 Estimated GFR (Non- 92.1 BUN/Creatinine Ratio 13.2 Random Glucose 76 mg/dl Calcium Level 8.0 mg/dl Phosphorus Level 2.1 mg/dl Magnesium Level 2.2 mg/dl (Keyla Manuel CRNP) Assessment and Plan 62 y/o M who was admitted on 03/[address] Smith for high grade SBO. SBO: Noted on CTAP planning for conservative management for now DVT proph and diet as per gen surg Hb on admission 18.9, 14.7 today Hypophosphatemia phosphorous 2.1 - will likely resolve as he starts diet today repeat tomorrow HTN: stable Hx of medication use but no longer on medication and no issues DM: hx of pre-DM that has resolved with diet control Hx of GIB with aspirin 81mg for prevention, no hx of NH, CVA (Keyla Manuel CRNP) [employer] Physician Supervision Note: I discussed with Keyla Manuel NP and agree with findings and plan as documented in the note. Any exceptions or clarifications are listed here: None Documented By: Karl Gongora (Karl Gongora M.D.)
[2018-03-02 15:17] VITALS: BP 163/76; PULSE 72; TEMP 36.6; O2SAT 98
[2018-03-02 15:40] VITALS: O2SAT 98
[2018-03-02 23:30] VITALS: BP 113/69; PULSE 68; TEMP 36.7; O2SAT 97
[2018-03-03] MEDS: NSS + 20MEQ KCL 1000ML 1,000 ML IV SCH ×2 (04:05→14:50)
[2018-03-03] MEDS ORDERED: ACETAMINOPHEN 325 MG TAB ONE (05:58)
[2018-03-03] MEDS ORDERED: ACETAMINOPHEN 325 MG TAB PO PRN (06:00)
[2018-03-03] MEDS ORDERED: SODIUM PHOSPHATE 3 MMOL/1 ML INFUSION IV STA (06:36)
--- NOTE | 2018-03-03 06:42 | Surgery Progress Note ---
Surgery Progress Note Date of Service Mar 03, 2018. Subjective some mild headache no N/V, no abd pain, some flatus, loose bm, good urine output wants to try some food Objective Vital Signs: Date Time Temp Pulse Resp B/P (MAP) Pulse Ox O2 Delivery O2 Flow Rate FiO2 03/02/18 23:40 Room Air 03/02/18 23:30 36.7 68 16 113/69 (84) 97 Room Air 03/02/18 15:40 98 Room Air 03/02/18 15:17 36.6 72 18 163/76 (105) 98 03/02/18 11:25 36.9 66 16 136/80 (98) 96 Room Air 03/02/18 09:30 94 Room Air 03/02/18 07:40 37.0 71 14 139/79 (99) 94 Room Air 03/02/18 07:30 Room Air General Appearance: no apparent distress Respiratory/Chest: no respiratory distress Abdomen: non tender, soft, + pertinent finding (has bowel sounds) Laboratory Results: Results Past 24 Hours Test 03/03/18 05:32 Range/Units Phosphorus Level 2.4 2.5-4.9 mg/dl Assessment & Plan 03/03/18- Will try full liquids this am - give dose of Lovenox. still some concern for partial obstruction but does not require surgery at this point unless recurs/ worsens. Was considering SBF xray but would rather try diet. replace phos addendum- pt tolerating clear liquids and bowels are moving. he feels good, abd soft- will d/c home- try low fiber diet initially and advance gradually. see in office- probably check SBF- possibly have Dr Mello see him 03/02/18- adm with sbo- has had mult loose bms, flatus- initial CT findings impressive with dilated small bowel- has made improvement- check film this am, try NG clamping schedule. He feels relatively normal. Could have adhesion with partial obstruction and worsened by eating Lg salad with cabbage/ high fiber. addendum- film shows all contrast in colon- minimal findings of sbo- will remove NG, try ice 03/02/18- adm with sbo- has had mult loose bms, flatus- initial CT findings impressive with dilated small bowel- has made improvement- check film this am, try NG clamping schedule. He feels relatively normal. Could have adhesion with partial obstruction and worsened by eating Lg salad with cabbage/ high fiber. addendum- film shows all contrast in colon- minimal findings of sbo- will remove NG, try ice
[2018-03-03] MEDS ORDERED: SODIUM PHOSPHATE INJ 15 MMOL in SODIUM CHLORIDE 0.9% 250ML 250 ML IV ONE (07:00)
[2018-03-03 07:55] VITALS: BP 122/72; PULSE 66; TEMP 36.7; O2SAT 98
[2018-03-03 08:45] VITALS: O2SAT 98
[2018-03-03] MEDS ORDERED: DORZOLAMIDE/TIMOLOL 22.3/6.8MG/ML 10 ML BTL OPR SCH (09:00)
[2018-03-03] MEDS ORDERED: TIMOLOL MALEATE 0.5% OP SOLN 5 ML BTL OPL SCH (09:00)
[2018-03-03] MEDS ORDERED: ENOXAPARIN 40 MG/0.4 ML SYR SQ SCH (09:00)
--- NOTE | 2018-03-03 12:17 | Hospitalist Progress Note ---
Hospitalist Progress Note Date of Service Mar 03, 2018. Subjective Pt evaluation today including: conversation w/ patient, physical exam, chart review, lab review, review of inpatient medication list Voiding: no voiding problems Mr. Jeffers is sitting up in bed, working on his laptop. He is feeling much better, tolerating his diet, no pain. ROS Constitutional: no chills, aches, sweats or fever Respiratory: no sob,cough, sputum, or wheezing Cardiac: no chest pain, palpitations, edema, orthopnea or lightheadedness GI: no abdominal pain, nausea, vomiting, diarrhea or constipation : no dysuria or hesitancy Extremities: no joint pain or weakness Skin: no rash All other systems reviewed and negative Medications Medications Administered Medications (Trade) Dose Ordered Sig/Andressa Route Start Time Stop Time Status Last Admin Dose Admin Famotidine (Pepcid Tab) 20 mg NOW STAT PO 03/01/18 06:39 03/01/18 06:42 DC 03/01/18 06:52 20 MG Sucralfate (Carafate Tab) 1 gm NOW STAT PO 03/01/18 06:39 03/01/18 06:42 DC 03/01/18 06:52 1 GM Al Hydroxide/Mg Hydroxide (Maalox Susp) 30 ml STK-MED ONCE .ROUTE 03/01/18 06:43 03/01/18 06:44 DC 03/01/18 06:52 30 ML Lidocaine HCl (Viscous Lidocaine 2% Soln) 20 ml STK-MED ONCE .ROUTE 03/01/18 06:43 03/01/18 06:44 DC 03/01/18 06:52 20 ML Sodium Chloride 1,000 ml @ 999 mls/hr Q1H1M STAT IV 03/01/18 07:00 03/01/18 08:00 DC 03/01/18 07:00 999 MLS/HR Ondansetron HCl (Zofran Inj) 4 mg NOW STAT IV 03/01/18 07:00 03/01/18 07:02 DC 03/01/18 07:16 4 MG Sodium Chloride 1,000 ml @ 150 mls/hr Q6H40M IV 03/01/18 10:56 03/01/18 15:11 DC 03/01/18 12:20 150 MLS/HR Potassium Chloride/Sodium Chloride 1,000 ml @ 100 mls/hr Q10H IV 03/01/18 13:00 03/31/18 12:59 03/03/18 04:05 125 MLS/HR Acetaminophen 100 ml @ 400 mls/hr Q8H PRN IV 03/01/18 19:00 03/03/18 05:50 DC 03/02/18 13:29 400 MLS/HR Dorzolamide/ Timolol (Cosopt Op Soln) 2 drops DAILY OPR 03/03/18 09:00 04/02/18 08:59 03/03/18 09:00 2 DROPS Timolol Maleate (Timoptic 0.5% Oph Soln) 1 drops DAILY OPL 03/03/18 09:00 04/02/18 08:59 03/03/18 09:00 1 DROPS Acetaminophen (Tylenol Tab) 650 mg STK-MED ONCE .ROUTE 03/03/18 05:58 03/03/18 05:59 DC 03/03/18 06:00 650 MG Enoxaparin Sodium (Lovenox Inj) 40 mg QAM SQ 03/03/18 09:00 04/02/18 08:59 03/03/18 10:43 40 MG Sodium Phosphate 15 mmol/Sodium Chloride 255 ml @ 88 mls/hr NOW ONCE IV 03/03/18 07:00 03/03/18 09:53 DC 03/03/18 07:21 88 MLS/HR Objective Vital Signs Date Time Temp Pulse Resp B/P (MAP) Pulse Ox O2 Delivery O2 Flow Rate FiO2 03/03/18 08:45 98 Room Air 03/03/18 07:55 36.7 66 14 122/72 (89) 98 Room Air 03/03/18 07:20 Room Air 03/02/18 23:40 Room Air 03/02/18 23:30 36.7 68 16 113/69 (84) 97 Room Air 03/02/18 15:40 98 Room Air 03/02/18 15:17 36.6 72 18 163/76 (105) 98 Physical Exam Notes: General: no distress Eyes: normal inspection, PERLL Respiratory: chest non tender, clear to auscultation, normal breath sounds, no respiratory distress, no accessory muscle use Cardiac: regular rate and rhythm, no rub or gallop, no murmur, no edema, no jvd GI/: active bowel sounds, mild tenderness to palpation LLQ, soft, non distended Extremities: normal range of motion, normal strength, non tender Neuro/Psych: alert and oriented x 3, normal mood and affect Skin: normal color, dry Laboratory Results Last 24 Hours Test 03/03/18 05:32 03/03/18 06:55 Phosphorus Level 2.4 mg/dl Prothrombin Time 10.8 SECONDS Prothromb Time International Ratio 1.0 Activated Partial Thromboplast Time 26.0 SECONDS Partial Thromboplastin Ratio 1.0 Assessment and Plan 62 y/o M who was admitted on 03/[address] Smith for high grade SBO. SBO: Noted on CTAP - continuing conservative management per surgery - DVT proph and diet as per gen surg - Hb on admission 18.9, 14.7 03/02 Hypophosphatemia - improving - 2.4 today HTN: stable - Hx of medication use but no longer on medication and no issues DM: hx of pre-DM that has resolved with diet control Hx of GIB with aspirin 81mg for prevention, no hx of CA, CVA Medicine will sign off for now, please let us know if we can be of further service in the future
[2018-03-03] MEDS ORDERED: IBUPROFEN 600 MG TAB PO PRN (12:30)
[2018-03-03 15:13] VITALS: BP 132/78; PULSE 50; TEMP 37; O2SAT 98
--- NOTE | 2018-03-03 15:36 | Discharge Instructions ---
Discharge Instructions Date of Service Mar 03, 2018. Admission Reason for Admission: Small Bowel Obstruction Discharge Discharge Diagnosis / Problem: nausea, vomiting, abdominal pain Discharge Goals Goal(s): Decrease discomfort, Improve function, Improve disease control Activity Recommendations Activity Limitations: as noted below Lifting Limitations: gradually increase as tolerated Exercise/Sports Limitations: gradually increase as tolerated May Resume Sexual Activity: when tolerated Shower/Bathe: no limitations Driving or Machine Use: resume 1 day after discharge . Instructions / Follow-Up Instructions / Follow-Up SPECIAL CARE INSTRUCTIONS: * try low fiber diet for several days and may advance diet as tolerated. Chop vegetables well and chew well. * May use ibuprofen for pain as tolerated. or Acetaminophe Call your doctor if: * Temperature above 101 degrees * Pain not relieved by pain medicine ordered * You have any unanswered questions or concerns [phone]. (Dr Smith's ph number) FOLLOW UP VISIT: If not already scheduled, please call the office for a follow-up visit. for 2-3 weeks OFFICE PHONE NUMBER: Dr. Smith Office Current Hospital Diet Patient's current hospital diet: Full Liquid Diet Discharge Diet Recommended Diet: Low Fiber Diet Pending Studies Studies pending at discharge: no Medical Emergencies . Who to Call and When: Medical Emergencies: If at any time you feel your situation is an emergency, please call 911 immediately. . Non-Emergent Contact Non-Emergency issues call your: Primary Care Provider, Surgeon . "Provider Documentation" section prepared by John Smith. .
[2018-03-03 16:17] VITALS: BP 132/78; PULSE 50; TEMP 37; O2SAT 98
--- NOTE | 2018-03-07 14:18 | DISCHARGE SUMMARY ---
PRIMARY DISCHARGE DIAGNOSIS: Small-bowel obstruction. SECONDARY DISCHARGE DIAGNOSES: 1. History of hypertension, not requiring medication. 2. Prediabetes, diet controlled. 3. Glaucoma. CONSULTATIONS: [facility]ist for routine medical management. HOSPITAL COURSE: The patient is a 62-year-old male who presented to the Emergency Department with several days of abdominal pain, bloating and vomiting after eating a high-fiber meal. CT showed markedly dilated small bowel with a transition in the left pelvis. He has not had previous surgery, but has a history of diverticulitis. We thought that his obstruction maybe related to an adhesion from his previous diverticulitis. He was admitted to the surgical service and NG tube was placed. He had significant improvement overnight, and the next morning was able to tolerate clamping of the NG tube followed later in the day by removal and started on clear liquids. The next day , he was able to tolerate full liquids. His exam was normal. His symptoms had resolved. He was stable for discharge. DISCHARGE INSTRUCTIONS: Discharge home. Follow up with Dr. Smith in approximately 2 weeks. Can gradually begin low-fiber diet. DISCHARGE MEDICATIONS: Cosopt eyedrops daily and Timolol drops daily. MTDD
== END 2018-03-03 17:15 | disposition home or self-care (01) | DRG 390 ==
LOC: C.EDB 06:28 → C.MSW 10:59 → ENRESERV 11:23
PROVIDERS: ADMIT Surgery; ATTEND Surgery
DX: K56.609 Unspecified intestinal obstruction, unspecified as to partial versus complete obstruction (principal); R73.03 Prediabetes; I10 Essential (primary) hypertension; N18.9 Chronic kidney disease, unspecified; H40.9 Unspecified glaucoma; E83.39 Other disorders of phosphorus metabolism; Z84.2 Family history of other diseases of the genitourinary system

== ENCOUNTER 2018-09-21 16:26 | Inpatient (IN) ==
[2018-09-21] MEDS ORDERED: SODIUM CHLORIDE 0.9% 1000ML 1,000 ML IV SCH (17:45)
[2018-09-21 17:50] LABS: Basophils # (auto) 0.02 K/uL (0-0.2); Basophils % (auto) 0.2 %; Eosinophils # (auto) 0.01 K/uL (0-0.5); Eosinophils % (auto) 0.1 %; Hematocrit (blood only) 49.2 % (42-52); Hemoglobin 17.2 g/dL (14.0-18.0); Immature Granulocytes # (auto) 0.03 K/uL (0.00-0.02); Immature Granulocytes % (auto) 0.3 %; Lymphocytes # (auto) 1.42 K/uL (1.2-3.4); Lymphocytes % (auto) 14.5 %; Mean Corpuscular Volume 94.1 fL (80-100); Mean Platelet Volume 10.4 fL (7.4-10.4); Monocytes % (auto) 8.2 %; Neutrophils # (auto) 7.52 K/uL (1.4-6.5); Neutrophils % (auto) 76.7 %; Platelet Count 212 K/uL (130-400); RDW Coefficient of Variation 13.5 % (11.5-14.5); RDW Standard Deviation 46.5 fL (36.4-46.3); Red Blood Count 5.23 M/uL (4.7-6.1)
[2018-09-21 18:05] LABS: Albumin Level 4.4 gm/dl (3.4-5.0); BUN Creatinine Ratio 12.1 (10-20); Bilirubin Direct 0.3 mg/dl (0-0.2); Calcium 9.6 mg/dl (8.5-10.1); Creatinine Clr Calc Pharmacy 72.9 ml/min; Est GFR (Non-African American) 77.7; Potassium 3.9 mmol/L (3.5-5.1)
[2018-09-21 18:08] LABS: Bilirubin,Total 1.3 mg/dl (0.2-1); Total Protein 8.2 gm/dl (6.4-8.2)
--- NOTE | 2018-09-21 18:31 | XRay Report ---
XR abdomen 2V w PA chest CLINICAL HISTORY: 63 years-old Male presenting with abdominal pain hx of sbo. TECHNIQUE: PA view of the chest and supine and upright views of the abdomen were obtained. COMPARISON: 03/02/2018. FINDINGS: Cardiomediastinal silhouette normal. Lungs and pleural spaces clear. Air-fluid levels in the mid abdomen. Moderate stool burden throughout the colon. No pneumoperitoneum. Bilateral nephrolithiasis suspected. Stable distribution of pelvic phleboliths. Osseous structures normal. IMPRESSION: 1. Air-fluid levels in the midabdomen raise concerning for underlying small bowel obstruction. 2. Bilateral nephrolithiasis. 3. No acute cardiopulmonary disease. Electronically signed by: Javier Nagy M.D. 09/21/2018 6:29 PM
[2018-09-21] MEDS ORDERED: MoRPHine SULFATE 2 MG/ML CARP IV PRN (19:18)
[2018-09-21] MEDS ORDERED: KETOROLAC 30 MG/ML VIAL IV PRN (19:18)
--- NOTE | 2018-09-21 19:19 | History & Physical Report ---
Date of Service September 21, 2018 Assessment & Plan (1) SBO (small bowel obstruction): Hx of same Noted on AXR NPO with IVF Zofran, morphine, toradol PRN Pt of Dr. Smith, c/s pending (2) DVT prophylaxis: SCDs in case of need for OR History of Present Illness Primary Care Provider: Adán Freedman 63 y/o M c/o abd pain. Pt states that he woke around 12:30a today with centralized abd pain. It calmed down somewhat and he was able to go back to sleep until his alarm went off. He had a breakfast of oatmeal and went to work. He was still having slight abd pain, but it was better than when he woke with it. He was playing basketball around 11:30a and still had a slight pain. Shortly after around 12:30p he developed much more intense pain. It felt exactl y like the abd pain he has had with his SBO episodes, so he came to the ED. Pt denies fever, SOB, chest pain, n/v/c/d, LE pain or swelling. Pt states that in July he had an MEEK with Dr. Smith as an elective procedure to prevent further SBO episodes. He was not having abd pain at that time. Allergies Allergy/AdvReac Type Severity Reaction Status Date / Time No Known Allergies Allergy Verified 08/08/18 05:43 Home Medications Home Medications Medication Instructions Recorded Confirmed Type Probiotic 1 cap PO DAILY 08/08/18 09/21/18 History lutein 20 mg PO DAILY 08/08/18 09/21/18 History sumatriptan succinate 100 mg PO DIRECTED PRN 09/21/18 09/21/18 History Past Med/Surg History Medical History Arthritis (Acute) Glaucoma (Acute) History of anemia (Acute) Hx of migraines (Acute) Nephrolithiasis (Acute) Small bowel obstruction (Acute) Tinnitus (Acute) Diverticular disease Surgical History History of nasal septoplasty (Acute) History of herniorrhaphy RT INGUINAL HERNIA REPAIR Family History Father Cancer Hypertension Grandmother (Paternal) Diabetes Mother Cancer Grandfather (Maternal) Stroke Social History Preferred Language: Tristanian Beliefs That Will Affect Care: None Current Living Situation: Spouse Feels Safe at Home: Yes Smoking Status: Never smoker Hx Alcohol Use: Yes (once a week) Hx Substance Use: No Review of Systems Pertinent positives and negatives reviewed in HPI--all others negative Physical Exam Vital Signs (Past 24 Hours): Last Vital Signs Temp 36.7 C 09/21/18 16:41 Pulse 66 09/21/18 17:57 Resp 16 09/21/18 17:57 BP 142/86 H 09/21/18 17:57 Pulse Ox 99 09/21/18 17:57 Constitutional: WD/WN, vitals as above Eyes: normal visual mathews by confrontation and + anicteric sclerae Neck: normal visual inspection and trachea midline Respiratory: normal respiratory effort, lungs clear to auscultation Cardiovascular: Rate/Rhythm: regular rate and regular rhythm Gastrointestinal (Abdomen): Inspection/Auscultation: + abdomen distended Percussion/Palpation: abdomen soft; abdomen nontender Musculoskeletal: Head/Neck/Chest: normocephalic and head atraumatic negative for edema, peripheral pulses intact Skin: no rashes, warm and dry Neurologic: awake; not confused Speech / Cognition: normal speech Psychiatric: A+Ox3, euthymic affect Results & Data Diagnostic Findings C/A XR: finding c/w SBO Code Status & VTE Plan Code Status Other: Full code, although pt states no prolonged mechanical life support, feeding tubes, etc VTE Prophylaxis Plan VTE Prophylaxis will be ordered: Yes
[2018-09-21] MEDS ORDERED: MAGNESIUM HYDROXIDE SUSP 30 ML UDC PO PRN (20:25)
[2018-09-21] MEDS ORDERED: ACETAMINOPHEN 325 MG TAB PO PRN (20:25)
[2018-09-21] MEDS ORDERED: ONDANSETRON INJ 2 MG/ML 2 ML VIAL IV PRN (20:25)
[2018-09-21] MEDS: D5W AND 1/2NSS + 20MEQ KCL 20 MEQ/1,000 ML BAG IV SCH (22:35)
--- NOTE | 2018-09-21 23:14 | Emergency Department Note ---
Entered by Israel Samaniego acting as a scribe for Romaine Treadwell History of Present Illness General Chief complaint: Abdominal Pain Stated complaint: SEVERE ABD PAIN Time Seen by Provider: 09/21/18 17:30 Source: patient History of Present Illness Onset (ago): hour(s) (today) Location: abdomen Pain Consistency: + other (persistent) Quality: + other (abdominal pain similar to prior small bowel obstruction) Associated symptoms: no chest pain, no nausea/vomiting, no shortness of breath and no syncope The patient is a 63 year old male who presents to the Emergency Room with complaints of persistent abdominal pain beginning today. The patient has a history of small bowel obstruction, and on August 08 he had a laparoscopic procedure performed by Dr. Smith Surgery with lysis of adhesions. He states th at his current symptoms feel similar to his prior bowel obstructions. He states that his last bowel movement was this morning, and it was not bloody or black. He denies urinary symptoms, vomiting, chest pain, shortness of breath, or loss of consciousness. He notes that he was able to play basketball earlier today, and there was no trauma at the time. Home Medications Home Medications Medication Instructions Recorded Confirmed Type Probiotic 1 cap PO DAILY 08/08/18 09/21/18 History lutein 20 mg PO DAILY 08/08/18 09/21/18 History sumatriptan succinate 100 mg PO DIRECTED PRN 09/21/18 09/21/18 History Allergies Allergy/AdvReac Type Severity Reaction Status Date / Time No Known Allergies Allergy Verified 08/08/18 05:43 Past Med/Surg History Medical History Arthritis (Acute) Glaucoma (Acute) History of anemia (Acute) Hx of migraines (Acute) Nephrolithiasis (Acute) Small bowel obstruction (Acute) Tinnitus (Acute) Diverticular disease Surgical History History of nasal septoplasty (Acute) History of herniorrhaphy RT INGUINAL HERNIA REPAIR Family History Father Cancer Hypertension Grandmother (Paternal) Diabetes Mother Cancer Grandfather (Maternal) Stroke Social History Preferred Language: Portuguese Communication Ability: Effective Predatory Animal Hunter Required: No Beliefs That Will Affect Care: None Current Living Situation: Spouse Other Information That Helps Us Care for You: No Feels Safe at Home: Yes Safety Concerns: Feels Safe At This Time Smoking Status: Never smoker Hx Alcohol Use: Yes Hx Substance Use: No Review of Systems See HPI for pertinent positives & negatives. and A total of 10 systems reviewed and were otherwise negative Physical Exam Vital Signs Vital Signs - 24 hr 09/21/18 16:41 09/21/18 17:57 09/21/18 19:21 Temperature 36.7 C Temperature Source Oral Sepsis Recent Fever Within 48 Hours No Sepsis New/Unexplained Change in Mental Status No Sepsis Action Taken by Nursing No Action Required Pulse Rate 79 Pulse Rate [Finger] 66 72 Pulse Rhythm [Finger] Pulse Strength [Finger] Respiratory Rate 20 16 16 Respiratory Effort / Characteristics Non-Labored Spontaneous Respiratory Depth Normal Respiratory Pattern Blood Pressure 156/89 H Blood Pressure [Left Arm] 142/86 H 152/86 H Blood Pressure Mean 111 Blood Pressure Mean [Left Arm] 104 108 Blood Pressure Position Sitting Blood Pressure Position [Left Arm] Sitting Pulse Oximetry 100 99 97 Oxygen Delivery Method Room Air Room Air Room Air 09/21/18 20:01 09/21/18 20:20 Temperature 37 C Temperature Source Oral Sepsis Recent Fever Within 48 Hours Sepsis New/Unexplained Change in Mental Status Sepsis Action Taken by Nursing Pulse Rate 65 Pulse Rate [Finger] 62 Pulse Rhythm [Finger] Regular Pulse Strength [Finger] Normal Respiratory Rate 16 14 Respiratory Effort / Characteristics Non-Labored Spontaneous Normal for Patient Respiratory Depth Normal Respiratory Pattern Regular Blood Pressure 134/81 Blood Pressure [Left Arm] 154/82 H Blood Pressure Mean Blood Pressure Mean [Left Arm] 106 Blood Pressure Position Blood Pressure Position [Left Arm] Lying Pulse Oximetry 97 96 Oxygen Delivery Method Room Air Room Air GENERAL: He is oriented to person, place, and time. He appears well-developed and well-nourished. He does not appear distressed. HENT: Exam performed. Head: Normocephalic and atraumatic. Right Ear: External ear normal. No mastoid tenderness. Left Ear: External ear normal. No mastoid tenderness. Mouth/Throat: The oropharynx is clear and moist. No trismus in the jaw. No dental abscesses or uvula swelling. No oropharyngeal exudate or tonsillar abscesses. EYES: Conjunctivae and EOM are normal. Pupils are equal, round, and reactive to light. Right eye exhibits no discharge. Left eye exhibits no discharge. No scleral icterus. NECK: Normal range of motion. Neck supple. No JVD present. No spinous process tenderness present. No carotid bruit present. No rigidity. No tracheal deviation and normal range of motion present. No Brudzinski's sign and no Kernig's sign noted. CV: Normal rate, regular rhythm, normal heart sounds and intact distal pulses. There is no peripheral edema. Palpable radial pulses bue. PULM/CHEST: Effort normal and breath sounds normal. No respiratory distress. No stridor. He has no wheezes. He has no rales. Chest Wall: He exhibits no tenderness. ABD: The abdomen is soft. Bowel sounds are normal. He has no distension. No mass is present. There is diffuse tenderness to palpation. There is no rebound, no guarding, no Escoto's sign and no tenderness at McBurney's point. Rovsig negative. MUSC/SKEL: Normal range of motion. There is no peripheral edema, tenderness or deformity. LYMPH: No cervical adenopathy. NEURO: He is alert and oriented to person, place, and time. He has normal strength. No cranial nerve deficit or sensory deficit. Coordination and gait normal. GCS eye subscore is 4. GCS verbal subscore is 5. GCS motor subscore is 6. cerbellar tests wnl. SKIN: Skin is warm and dry. He is not diaphoretic. PSYCH: He has a normal mood and affect. His behavior is normal. Judgment and thought content normal. Course 1734: Past medical records reviewed. The patient was evaluated in room C5, and a complete history and physical examination were performed. 1832: Vital signs are stable. Labs are within normal limits. Imaging shows multiple air fluid levels concerning for small bowel obstruction. I consulted Dr. Tran [facility] Hospitalist. She will reevaluate the patient for hospitalization. Consultations Consultation #1: I consulted Dr. Tran [facility] Hospitalist. She will reevaluate the patient for hospitalization. Time: 18:34 Administered Medications Potassium Chloride/Dextrose/Sod Cl (D5w And 1/2nss + 20meq Kcl) 20 meq in 1,000 mls @ 120 mls/hr IV .Q8H20M SHELLY Stop: 10/21/18 21:19 Last Admin: 09/21/18 22:35 Dose: 120 mls/hr Documented by: [id number] Discontinued Medications Sodium Chloride (Nss 1000ml) 1,000 mls @ 125 mls/hr IV .Q8H SHELLY Stop: 10/21/18 17:44 Last Infusion: 09/21/18 20:00 Dose: 0 mls/hr Documented by: [id number] Admin: 09/21/18 17:52 Dose: 125 mls/hr Documented by: [id number] Medical Decision Making Medical Records Attestation: I reviewed the patient's medical records. Home Medications Current Medication List: was personally reviewed by ne Laboratory Data Attestation: I reviewed the patient's lab results. Result diagrams: 09/21/18 17:34 09/21/18 17:34 Lab Results 09/21/18 09/21/18 Range/Units 17:34 17:34 WBC 9.80 (4.8-10.8) K/uL RBC 5.23 (4.7-6.1) M/uL Hgb 17.2 (14.0-18.0) g/dL Hct 49.2 (42-52) % MCV 94.1 (80-100) fL MCH 32.9 (25-34) pg MCHC 35.0 (32-36) g/dL RDW Std Deviation 46.5 H (36.4-46.3) fL RDW Coeff of Carlos 13.5 (11.5-14.5) % Plt Count 212 (130-400) K/uL MPV 10.4 (7.4-10.4) fL Immature Gran % (Auto) 0.3 % Neut % (Auto) 76.7 % Lymph % (Auto) 14.5 % Bacon % (Auto) 8.2 % Eos % (Auto) 0.1 % Baso % (Auto) 0.2 % Immature Gran # (Auto) 0.03 H (0.00-0.02) K/uL Neut # (Auto) 7.52 H (1.4-6.5) K/uL Lymph # (Auto) 1.42 (1.2-3.4) K/uL Bacon # (Auto) 0.80 H (0.11-0.59) K/uL Eos # (Auto) 0.01 (0-0.5) K/uL Baso # (Auto) 0.02 (0-0.2) K/uL Sodium 141 (136-145) mmol/L Potassium 3.9 (3.5-5.1) mmol/L Chloride 106 (98-107) mmol/L Carbon Dioxide 27 (21-32) mmol/L Anion Gap 8.0 (3-11) BUN 12 (7-18) mg/dl Creatinine 1.01 (0.6-1.4) mg/dl Est Cr Clr Drug Dosing 72.9 ml/min Est GFR ( Amer) 90.0 Est GFR (Non-Af Amer) 77.7 BUN/Creatinine Ratio 12.1 (10-20) Glucose 91 (70-99) mg/dl Calcium 9.6 (8.5-10.1) mg/dl Total Bilirubin 1.3 H (0.2-1) mg/dl Direct Bilirubin 0.3 H (0-0.2) mg/dl AST 27 (15-37) U/L ALT 35 (12-78) U/L Alkaline Phosphatase 101 (45-117) U/L Total Protein 8.2 (6.4-8.2) gm/dl Albumin 4.4 (3.4-5.0) gm/dl Lipase 79 (73-393) U/L Imaging Data Radiologist's Impression: Radiology results as stated below per my review and the radiologist's interpretation: XR abdomen 2V w PA chest CLINICAL HISTORY: 63 years-old Male presenting with abdominal pain hx of sbo. TECHNIQUE: PA view of the chest and supine and upright views of the abdomen were obtained. COMPARISON: 03/02/2018. FINDINGS: Cardiomediastinal silhouette normal. Lungs and pleural spaces clear. Air-fluid levels in the mid abdomen. Moderate stool burden throughout the colon. No pneumoperitoneum. Bilateral nephrolithiasis suspected. Stable distribution of pelvic phleboliths. Osseous structures normal. IMPRESSION: 1. Air-fluid levels in the midabdomen raise concerning for underlying small bowel obstruction. 2. Bilateral nephrolithiasis. 3. No acute cardiopulmonary disease. Electronically signed by: Javier Nagy M.D. 09/21/2018 6:29 PM Blood Pressure Blood Pressure Findings: Elevated blood pressure Blood Pressure Disposition: further management by hospitalist [facility] Narrative Vital signs are stable. Labs are within normal limits. Imaging shows multiple air fluid levels concerning for small bowel obstruction. I consulted Dr. Tran [facility] Hospitalist. She will reevaluate the patient for hospitalization. Impression & Plan SBO (small bowel obstruction) Discharge Plan Visit Data *Final* Discharge Date/Time: 09/21/18 20:01 Chief Complaint: Abdominal Pain Stated Complaint: SEVERE ABD PAIN ED Provider: Romaine Treadwell Discharge Problem: SBO (small bowel obstruction) Patient Disposition: Admitted As Inpatient Discharge Instructions Interventions: ED Discharge Assessment Last Done: 09/21/18 20:01 The scribe's documentation has been prepared under my direction and personally reviewed by me in its entirety. I confirm that the note above accurately reflects all work, treatment, procedures, and medical decision making performed by me.
[2018-09-22] MEDS: D5W AND 1/2NSS + 20MEQ KCL 20 MEQ/1,000 ML BAG IV SCH (06:37)
[2018-09-22 08:45] LABS: Basophils # (auto) 0.02 K/uL (0-0.2); Basophils % (auto) 0.4 %; Eosinophils # (auto) 0.09 K/uL (0-0.5); Eosinophils % (auto) 1.8 %; Hematocrit (blood only) 42.6 % (42-52); Hemoglobin 14.3 g/dL (14.0-18.0); Immature Granulocytes # (auto) 0.02 K/uL (0.00-0.02); Immature Granulocytes % (auto) 0.4 %; Lymphocytes # (auto) 1.78 K/uL (1.2-3.4); Lymphocytes % (auto) 34.7 %; Mean Corpuscular Hgb Conc 33.6 g/dL (32-36); Mean Corpuscular Volume 95.1 fL (80-100); Mean Platelet Volume 10.5 fL (7.4-10.4); Monocytes # (auto) 0.47 K/uL (0.11-0.59); Monocytes % (auto) 9.2 %; Neutrophils # (auto) 2.75 K/uL (1.4-6.5); Neutrophils % (auto) 53.5 %; Platelet Count 170 K/uL (130-400); RDW Coefficient of Variation 13.8 % (11.5-14.5); Red Blood Count 4.48 M/uL (4.7-6.1); White Blood Count 5.13 K/uL (4.8-10.8)
[2018-09-22 09:00] LABS: BUN Creatinine Ratio 9.9 (10-20); Creatinine Clr Calc Pharmacy 85.6 ml/min; Est GFR (African American) 105.5; Magnesium 2.2 mg/dl (1.8-2.4); Phosphorus 2.4 mg/dl (2.5-4.9); Potassium 3.9 mmol/L (3.5-5.1)
[2018-09-22] MEDS ORDERED: POTASSIUM PHOS 3 MMOL/1 ML INFUSION IV STA (10:32)
[2018-09-22] MEDS ORDERED: POTASSIUM PHOSPHATE 15 MMOL in SODIUM CHLORIDE 0.9% 250 ML IV ONE (10:45)
--- NOTE | 2018-09-22 10:56 | Surgery Consultation ---
Date of Consultation September 22, 2018 Assessment & Plan (1) S/P laparoscopy: (2) SBO (small bowel obstruction): This may have been a transient bowel obstruction. It may also been a case of gastroenteritis. He is now passing flatus. His abdominal pain is almost completely resolved. We will start a clear liquid diet and continue to evaluate. There is no evidence of peritonitis at the present time. Present on Admission?: Yes History of Present Illness Requesting Physician: Jaleel Woodruff Attending Physician: Jaleel Woodruff History of Present Illness I have been asked by Dr. Woodruff to see this 63-year-old male who presented to the emergency room with a complaint of abdominal pain and nausea. The patient awoke with it yesterday morning. It became continuous. It had a crampy sensation to it at times. He felt that he was bloated at that same time. He has had what he describes as bowel obstructions in the past. He has had about 4 of these since 2001. He underwent an exploratory laparoscopy in July. He said that there were adhesions lysed but the OR note indicates that there were no significant abnormalities seen. Is not had any other abdominal procedures. He had a normal bowel movement yesterday morning. There was no melena or hematochezia. He has not had a bowel movement since but he is now passing flatus. The abdominal pain has almost resolved. There is slight remaining discomfort in the upper abdomen. He feels much better than he did yesterday. Allergies Allergy/AdvReac Type Severity Reaction Status Date / Time No Known Allergies Allergy Verified 08/08/18 05:43 Home Medications Home Medications Medication Instructions Recorded Confirmed Type Probiotic 1 cap PO DAILY 08/08/18 09/21/18 History lutein 20 mg PO DAILY 08/08/18 09/21/18 History sumatriptan succinate 100 mg PO DIRECTED PRN 09/21/18 09/21/18 History Patient History Medical History Arthritis (Acute) Glaucoma (Acute) History of anemia (Acute) Hx of migraines (Acute) Nephrolithiasis (Acute) Small bowel obstruction (Acute) Tinnitus (Acute) Diverticular disease Surgical History S/P laparoscopy 07/30 History of nasal septoplasty (Acute) History of herniorrhaphy RT INGUINAL HERNIA REPAIR Family History Father Cancer Hypertension Grandmother (Paternal) Diabetes Mother Cancer Grandfather (Maternal) Stroke Social History Preferred Language: Czech Communication Ability: Effective Hand Stemmer Required: No Beliefs That Will Affect Care: None Current Living Situation: Spouse Other Information That Helps Us Care for You: No Feels Safe at Home: Yes Safety Concerns: Feels Safe At This Time Smoking Status: Never smoker Hx Alcohol Use: Yes Hx Substance Use: No Review of Systems Constitutional: no fever and no chills Respiratory: no cough and no dyspnea Cardiovascular: no chest pain Gastrointestinal: as per Subjective / HPI Genitourinary (Male): no dysuria Integumentary: no rash Physical Exam Vital Signs (Past 24 Hours): Last Vital Signs Temp 36.4 C L 09/22/18 07:45 Pulse 58 L 09/22/18 07:45 Resp 18 09/22/18 07:45 BP 124/82 09/22/18 07:45 Pulse Ox 98 09/22/18 07:45 Constitutional: WD/WN, vitals as above Neck: trachea midline, no thyromegaly Respiratory: normal respiratory effort, lungs clear to auscultation Cardiovascular: Rate/Rhythm: regular rate and regular rhythm Gastrointestinal (Abdomen): Inspection/Auscultation: normal bowel sounds; abdomen not distended Percussion/Palpation: + abdomen tender (Very mild upper abdominal) and abdomen soft Skin: no rashes, warm and dry Results & Data Laboratory Results 09/22/18 09/22/18 09/21/18 Range/Units 08:00 08:00 17:34 WBC 5.13 (4.8-10.8) K/uL RBC 4.48 L (4.7-6.1) M/uL Hgb 14.3 (14.0-18.0) g/dL Hct 42.6 (42-52) % MCV 95.1 (80-100) fL MCH 31.9 (25-34) pg MCHC 33.6 (32-36) g/dL RDW Std Deviation 48.0 H (36.4-46.3) fL RDW Coeff of Carlos 13.8 (11.5-14.5) % Plt Count 170 (130-400) K/uL MPV 10.5 H (7.4-10.4) fL Immature Gran % (Auto) 0.4 % Neut % (Auto) 53.5 % Lymph % (Auto) 34.7 % [place] % (Auto) 9.2 % Eos % (Auto) 1.8 % Baso % (Auto) 0.4 % Immature Gran # (Auto) 0.02 (0.00-0.02) K/uL Neut # (Auto) 2.75 (1.4-6.5) K/uL Lymph # (Auto) 1.78 (1.2-3.4) K/uL [place] # (Auto) 0.47 (0.11-0.59) K/uL Eos # (Auto) 0.09 (0-0.5) K/uL Baso # (Auto) 0.02 (0-0.2) K/uL Sodium 143 141 (136-145) mmol/L Potassium 3.9 3.9 (3.5-5.1) mmol/L Chloride 111 H 106 (98-107) mmol/L Carbon Dioxide 27 27 (21-32) mmol/L Anion Gap 4.0 8.0 (3-11) BUN 9 12 (7-18) mg/dl Creatinine 0.86 1.01 (0.6-1.4) mg/dl Est Cr Clr Drug Dosing 85.6 72.9 ml/min Est GFR ( Amer) 105.5 90.0 Est GFR (Non-Af Amer) 91.0 77.7 BUN/Creatinine Ratio 9.9 L 12.1 (10-20) Glucose 96 91 (70-99) mg/dl Calcium 8.0 L D 9.6 (8.5-10.1) mg/dl Phosphorus 2.4 L (2.5-4.9) mg/dl Magnesium 2.2 (1.8-2.4) mg/dl Total Bilirubin 1.3 H (0.2-1) mg/dl Direct Bilirubin 0.3 H (0-0.2) mg/dl AST 27 (15-37) U/L ALT 35 (12-78) U/L Alkaline Phosphatase 101 (45-117) U/L Total Protein 8.2 (6.4-8.2) gm/dl Albumin 4.4 (3.4-5.0) gm/dl Lipase 79 (73-393) U/L 09/21/18 Range/Units 17:34 WBC 9.80 (4.8-10.8) K/uL RBC 5.23 (4.7-6.1) M/uL Hgb 17.2 (14.0-18.0) g/dL Hct 49.2 (42-52) % MCV 94.1 (80-100) fL MCH 32.9 (25-34) pg MCHC 35.0 (32-36) g/dL RDW Std Deviation 46.5 H (36.4-46.3) fL RDW Coeff of Carlos 13.5 (11.5-14.5) % Plt Count 212 (130-400) K/uL MPV 10.4 (7.4-10.4) fL Immature Gran % (Auto) 0.3 % Neut % (Auto) 76.7 % Lymph % (Auto) 14.5 % [place] % (Auto) 8.2 % Eos % (Auto) 0.1 % Baso % (Auto) 0.2 % Immature Gran # (Auto) 0.03 H (0.00-0.02) K/uL Neut # (Auto) 7.52 H (1.4-6.5) K/uL Lymph # (Auto) 1.42 (1.2-3.4) K/uL [place] # (Auto) 0.80 H (0.11-0.59) K/uL Eos # (Auto) 0.01 (0-0.5) K/uL Baso # (Auto) 0.02 (0-0.2) K/uL Sodium (136-145) mmol/L Potassium (3.5-5.1) mmol/L Chloride (98-107) mmol/L Carbon Dioxide (21-32) mmol/L Anion Gap (3-11) BUN (7-18) mg/dl Creatinine (0.6-1.4) mg/dl Est Cr Clr Drug Dosing ml/min Est GFR ( Amer) Est GFR (Non-Af Amer) BUN/Creatinine Ratio (10-20) Glucose (70-99) mg/dl Calcium (8.5-10.1) mg/dl Phosphorus (2.5-4.9) mg/dl Magnesium (1.8-2.4) mg/dl Total Bilirubin (0.2-1) mg/dl Direct Bilirubin (0-0.2) mg/dl AST (15-37) U/L ALT (12-78) U/L Alkaline Phosphatase (45-117) U/L Total Protein (6.4-8.2) gm/dl Albumin (3.4-5.0) gm/dl Lipase (73-393) U/L
[2018-09-22] MEDS: LACTATED RINGER'S 1,000 ML IV SCH ×3 (11:26→23:43)
--- NOTE | 2018-09-22 13:36 | Hospitalist Progress Note ---
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 - XR findings c/w SBO on admission. - Surgery consulted, appreciate input. - Will advance to clear liquid diet. - Toradol and Morphine prn pain. - Zofran prn N/V. - LR at 100 ml/hr (in setting of elevated chloride level) (2) Electrolyte abnormality: - Phos level 2.4 - ordered KPhos 15 mmol IV. (3) DVT prophylaxis: - Hold for possible procedure. Dispo: Med/surg for SBO. Supervising Physician Co-Signing Physician Notes Attending Attestation: Chart reviewed in detail, care plan d/w YURY Davis. I agree w/ the daniel components of her documentation. SBO resolving w/ conservative measures. +flatus. Gen surg has ordered clears. Otherwise w/ stable labs and vitals. Jaleel Woodruff MD Subjective Pt. is doing well overall today. Abdominal pain improved, still has mild diffuse pain. Is passing gas, no BM yet. Denies nausea or vomiting. Will advance to clear liquid diet per surgery recs. Review of Systems All systems reviewed & are unremarkable except as noted in HPI & below Constitutional: no fever, no chills, no fatigue, no weakness and no anorexia Respiratory: no cough and no dyspnea Cardiovascular: no chest pain, no palpitations and no edema Gastrointestinal: + abdominal pain, + bloating and + constipation; no nausea and no vomiting Genitourinary (Male): no difficulty urinating Musculoskeletal: no joint pain Allergy / Immunological: no rash Physical Exam Vital Signs (Past 24 Hours): Last Vital Signs Temp 36.4 C L 09/22/18 07:45 Pulse 58 L 09/22/18 07:45 Resp 18 09/22/18 07:45 BP 124/82 09/22/18 07:45 Pulse Ox 98 09/22/18 07:45 Physical Exam: General: Resting comfortably in no apparent distress; A&OX3 HEENT: NC/AT; PERRLA with EOMI; [place] conjunctiva, MMM. Neck: Supple and nontender Cardiac: RRR w/o murmurs, gallops or rubs Lungs: CTA bilaterally; No rhonchi, wheezing, or rales Abdomen: BS hypoactive x 4; nontender to light palpation Extremities: Warm. No edema present Neuro: No focal weakness Skin: No rash Results & Data Laboratory Results 09/22/18 09/22/18 09/21/18 Range/Units 08:00 08:00 17:34 WBC 5.13 (4.8-10.8) K/uL RBC 4.48 L (4.7-6.1) M/uL Hgb 14.3 (14.0-18.0) g/dL Hct 42.6 (42-52) % MCV 95.1 (80-100) fL MCH 31.9 (25-34) pg MCHC 33.6 (32-36) g/dL RDW Std Deviation 48.0 H (36.4-46.3) fL RDW Coeff of Carlos 13.8 (11.5-14.5) % Plt Count 170 (130-400) K/uL MPV 10.5 H (7.4-10.4) fL Immature Gran % (Auto) 0.4 % Neut % (Auto) 53.5 % Lymph % (Auto) 34.7 % [place] % (Auto) 9.2 % Eos % (Auto) 1.8 % Baso % (Auto) 0.4 % Immature Gran # (Auto) 0.02 (0.00-0.02) K/uL Neut # (Auto) 2.75 (1.4-6.5) K/uL Lymph # (Auto) 1.78 (1.2-3.4) K/uL [place] # (Auto) 0.47 (0.11-0.59) K/uL Eos # (Auto) 0.09 (0-0.5) K/uL Baso # (Auto) 0.02 (0-0.2) K/uL Sodium 143 141 (136-145) mmol/L Potassium 3.9 3.9 (3.5-5.1) mmol/L Chloride 111 H 106 (98-107) mmol/L Carbon Dioxide 27 27 (21-32) mmol/L Anion Gap 4.0 8.0 (3-11) BUN 9 12 (7-18) mg/dl Creatinine 0.86 1.01 (0.6-1.4) mg/dl Est Cr Clr Drug Dosing 85.6 72.9 ml/min Est GFR ( Amer) 105.5 90.0 Est GFR (Non-Af Amer) 91.0 77.7 BUN/Creatinine Ratio 9.9 L 12.1 (10-20) Glucose 96 91 (70-99) mg/dl Calcium 8.0 L D 9.6 (8.5-10.1) mg/dl Phosphorus 2.4 L (2.5-4.9) mg/dl Magnesium 2.2 (1.8-2.4) mg/dl Total Bilirubin 1.3 H (0.2-1) mg/dl Direct Bilirubin 0.3 H (0-0.2) mg/dl AST 27 (15-37) U/L ALT 35 (12-78) U/L Alkaline Phosphatase 101 (45-117) U/L Total Protein 8.2 (6.4-8.2) gm/dl Albumin 4.4 (3.4-5.0) gm/dl Lipase 79 (73-393) U/L 09/21/18 Range/Units 17:34 WBC 9.80 (4.8-10.8) K/uL RBC 5.23 (4.7-6.1) M/uL Hgb 17.2 (14.0-18.0) g/dL Hct 49.2 (42-52) % MCV 94.1 (80-100) fL MCH 32.9 (25-34) pg MCHC 35.0 (32-36) g/dL RDW Std Deviation 46.5 H (36.4-46.3) fL RDW Coeff of Carlos 13.5 (11.5-14.5) % Plt Count 212 (130-400) K/uL MPV 10.4 (7.4-10.4) fL Immature Gran % (Auto) 0.3 % Neut % (Auto) 76.7 % Lymph % (Auto) 14.5 % [place] % (Auto) 8.2 % Eos % (Auto) 0.1 % Baso % (Auto) 0.2 % Immature Gran # (Auto) 0.03 H (0.00-0.02) K/uL Neut # (Auto) 7.52 H (1.4-6.5) K/uL Lymph # (Auto) 1.42 (1.2-3.4) K/uL [place] # (Auto) 0.80 H (0.11-0.59) K/uL Eos # (Auto) 0.01 (0-0.5) K/uL Baso # (Auto) 0.02 (0-0.2) K/uL Sodium (136-145) mmol/L Potassium (3.5-5.1) mmol/L Chloride (98-107) mmol/L Carbon Dioxide (21-32) mmol/L Anion Gap (3-11) BUN (7-18) mg/dl Creatinine (0.6-1.4) mg/dl Est Cr Clr Drug Dosing ml/min Est GFR ( Amer) Est GFR (Non-Af Amer) BUN/Creatinine Ratio (10-20) Glucose (70-99) mg/dl Calcium (8.5-10.1) mg/dl Phosphorus (2.5-4.9) mg/dl Magnesium (1.8-2.4) mg/dl Total Bilirubin (0.2-1) mg/dl Direct Bilirubin (0-0.2) mg/dl AST (15-37) U/L ALT (12-78) U/L Alkaline Phosphatase (45-117) U/L Total Protein (6.4-8.2) gm/dl Albumin (3.4-5.0) gm/dl Lipase (73-393) U/L
[2018-09-23 04:29] LABS: Hemoglobin 13.6 g/dL (14.0-18.0); Mean Corpuscular Hgb Conc 33.2 g/dL (32-36); Mean Corpuscular Volume 95.6 fL (80-100); Mean Platelet Volume 10.6 fL (7.4-10.4); Platelet Count 180 K/uL (130-400); RDW Coefficient of Variation 13.8 % (11.5-14.5); RDW Standard Deviation 47.6 fL (36.4-46.3); Red Blood Count 4.29 M/uL (4.7-6.1); White Blood Count 4.93 K/uL (4.8-10.8)
[2018-09-23 04:46] LABS: Albumin Level 2.9 gm/dl (3.4-5.0); BUN Creatinine Ratio 8.4 (10-20); Creatinine Clr Calc Pharmacy 84.7 ml/min; Est GFR (Non-African American) 90.6
[2018-09-23 04:53] LABS: Bilirubin,Total 1.1 mg/dl (0.2-1); Globulin 2.9 gm/dl (2.5-4.0); Total Protein 5.8 gm/dl (6.4-8.2)
--- NOTE | 2018-09-23 09:04 | Surgery Progress Note ---
Date of Service September 23, 2018 Assessment & Plan (1) S/P laparoscopy: (2) SBO (small bowel obstruction): This may have been a transient bowel obstruction. It may also been a case of gastroenteritis. He is now passing flatus and had a bowel movement this morning. Abdominal pain resolved. Vitals stable, afebrile, no leukocytosis. Tolerated clear liquids. Plan: Advance diet to regular diet If tolerates well may be discharged from surgical standpoint continue oob to chair and ambulate continue medical management Dr. Meredith has seen and examined pt, agrees with above Subjective feeling good this morning no abdominal pain no n/v passing gas and had bowel movement this morning, tolerated clear liquids Physical Exam Vital Signs (Past 24 Hours): Last Vital Signs Temp 36.7 C 09/23/18 08:24 Pulse 54 L 09/23/18 08:24 Resp 16 09/23/18 08:24 BP 144/84 H 09/23/18 08:24 Pulse Ox 99 09/23/18 08:24 Constitutional: WD/WN, vitals as above no acute distress and not ill appearing Respiratory: no respiratory distress Gastrointestinal (Abdomen): Inspection/Auscultation: abdomen normal to inspection and normal bowel sounds; abdomen not distended Percussion/Palpation: abdomen soft; abdomen nontender, no guarding and abdomen not rigid Skin: no rashes, warm and dry Psychiatric: A+Ox3, euthymic affect Results & Data Laboratory Results 09/23/18 09/23/18 Range/Units 03:52 03:51 WBC 4.93 (4.8-10.8) K/uL RBC 4.29 L (4.7-6.1) M/uL Hgb 13.6 L (14.0-18.0) g/dL Hct 41.0 L (42-52) % MCV 95.6 (80-100) fL MCH 31.7 (25-34) pg MCHC 33.2 (32-36) g/dL RDW Std Deviation 47.6 H (36.4-46.3) fL RDW Coeff of Carlos 13.8 (11.5-14.5) % Plt Count 180 (130-400) K/uL MPV 10.6 H (7.4-10.4) fL Sodium 143 (136-145) mmol/L Potassium 4.0 (3.5-5.1) mmol/L Chloride 112 H (98-107) mmol/L Carbon Dioxide 28 (21-32) mmol/L Anion Gap 3.0 (3-11) BUN 7 (7-18) mg/dl Creatinine 0.87 (0.6-1.4) mg/dl Est Cr Clr Drug Dosing 84.7 ml/min Est GFR ( Amer) 105.0 Est GFR (Non-Af Amer) 90.6 BUN/Creatinine Ratio 8.4 L (10-20) Glucose 82 (70-99) mg/dl Calcium 8.0 L (8.5-10.1) mg/dl Phosphorus 3.0 (2.5-4.9) mg/dl Total Bilirubin 1.1 H (0.2-1) mg/dl AST 15 (15-37) U/L ALT 21 (12-78) U/L Alkaline Phosphatase 72 (45-117) U/L Total Protein 5.8 L D (6.4-8.2) gm/dl Albumin 2.9 L (3.4-5.0) gm/dl Globulin 2.9 (2.5-4.0) gm/dl Albumin/Globulin Ratio 1.0 (0.9-2)
[2018-09-23] MEDS: LACTATED RINGER'S 1,000 ML IV SCH (13:11)
--- NOTE | 2018-09-23 14:41 | Discharge Summary ---
Date of Service September 23, 2018 Admission HPI Per Admitting Provider 63 y/o M c/o abd pain. Pt states that he woke around 12:30a today with centralized abd pain. It calmed down somewhat and he was able to go back to sleep until his alarm went off. He had a breakfast of oatmeal and went to work. He was still having slight abd pain, but it was better than when he woke with it. He was playing basketball around 11:30a and still had a slight pain. Shortly after around 12:30p he developed much more intense pain. It felt exactly like the abd pain he has had with his SBO episodes, so he came to the ED. Pt denies fever, SOB, chest pain, n/v/c/d, LE pain or swelling. Pt states that in July he had an MEEK with Dr. Smith as an elective procedure to prevent further SBO episodes. He was not having abd pain at that time. Admission Exam Per Admitting Provider Constitutional: WD/WN, vitals as above Eyes: normal visual mathews by confrontation and + anicteric sclerae Neck: normal visual inspection and trachea midline Respiratory: normal respiratory effort, lungs clear to auscultation Cardiovascular: Rate/Rhythm: regular rate and regular rhythm Gastrointestinal (Abdomen): Inspection/Auscultation: + abdomen distended Percussion/Palpation: abdomen soft; abdomen nontender Musculoskeletal: Head/Neck/Chest: normocephalic and head atraumatic negative for edema, peripheral pulses intact Skin: no rashes, warm and dry Neurologic: awake; not confused Speech / Cognition: normal speech Psychiatric: A+Ox3, euthymic affect Principal Diagnosis Small Bowel Obstruction Discharge Exam General: Resting comfortably in no apparent distress; A&OX3 HEENT: NC/AT; PERRLA with EOMI; [place] conjunctiva, MMM. Neck: Supple and nontender Cardiac: RRR w/o murmurs, gallops or rubs Lungs: CTA bilaterally; No rhonchi, wheezing, or rales Abdomen: BS hypoactive x 4; nontender to light palpation Extremities: Warm. 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 XR findings on admission c/w SBO. Surgery consulted, felt he likely had a transient SBO. Pt. was advanced to [facility] on 09/22/18. He received a regular diet starting 09/23/18. Abd pain resolved and he had a BM prior to discharge. Will f/u with surgery as outpatient. (2) Electrolyte abnormality: Replaced as needed. (3) DVT prophylaxis: SCDs. Pt. was stable for discharge on 09/23/18. Total Time Total Time Spent Total Time Spent (In Minutes): >30 minutes Total Time Includes: Examination of the Patient, Discharge Planning, Medication Reconciliation, Communication With Other Providers and Other Discharge Plan Discharge Items Patient Disposition: Home - Self-Care Reason For Visit: SBO Discharge Diagnosis: Small Bowel Obstruction Condition: Good Discharge Goals: Diagnostic testing, Improve disease control, Improve function, Increase independence, Improve nutritional status and Prevent disease Activity: Resume your previous activity Non-emergency contact: Primary Care Provider and Surgeon Call non-emergency contact if: you have any medication questions, your symptoms worsen, your pain is not controlled, your pain is worsening, your pain is unusual for you, your pain is concerning for you and you have a fever Follow-up/Referrals: Adán Freedman [Primary Care Provider] - Diet: Regular Addtl Provider Instructions: 1. Small Bowel Obstruction * Please slowly advance diet at home following discharge. * Please follow up with surgery (Dr. Smith) in 2-3 weeks to discuss this hospital admission. * Please follow up with your primary care provider in 7-10 days. 2. Please call your primary care provider or go to the ER if you develop the following: * Chest pain or shortness of breath. * Recurrent severe abdominal pain, constipation, nausea/vomiting. Prescriptions: Continued lutein 20 mg Capsule 20 mg PO DAILY RF: 0 Probiotic 10 billion cell Capsule 1 cap PO DAILY RF: 0 sumatriptan succinate 100 mg tablet 100 mg PO DIRECTED PRN (Reason: Migraine Headache) RF: 0 Stand-Alone Forms: Call Back Authorization, [facility] Discharge Orders: Discharge Order (Routine); Ordered 09/23/18 Ordered By: Fariba Mcclelland Admission Data Admit Date/Time: 09/21/18 19:13 Attending Provider: Fariba Mcclelland Admit Provider: Juana Tran Primary Care Provider: Adán Freedman Other Providers: Juana Tran ; John Smith Service: Surgical Services Other Interventions: Discharge Summary Assessment (RN) Last Done: 09/23/18 14:41 Pending Studies at Discharge: No DC Date/Time DO NOT enter until pt leaves facility: 09/23/18 15:41 Supervising Physician Co-Signing Physician Notes PA Supervision Note: I personally saw and examined the patient. I verified all daniel points and agree with YURY Walden with the following exceptions and/or additions: Pt doing very well, no abd pain, no nausea, tolerating regular diet. 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
== END 2018-09-23 15:41 | disposition home or self-care (01) | DRG 390 ==
LOC: ED 16:26 → SUATTDRO 19:13 → 3N 19:13